=== PATIENT | male | born 1960 | race Caucasian/White ===

== ENCOUNTER 2020-04-17 15:16 | Emergency (ER) | payer OTHER, MEDICARE, SELFPAY ==
--- NOTE | ~2020-04-17 | XR_ITS ---
EXAMINATION: XR chest 1V portable EXAM DATE: 04/17/2020 16:04 INDICATION: Chest pain, COVID positive. TECHNIQUE: Portable AP frontal chest x-ray was obtained. Comparison is made to prior examination from 05/24/2012. FINDINGS: The lungs are clear. There are no pleural effusions. The cardiomediastinal silhouette is within normal limits. There is no pneumothorax suspected. The bones and soft tissues are unremarkab le. IMPRESSION: No acute cardiopulmonary findings. Reviewed, dictated and finalized at location B. TH ANALYST
[2020-04-17 15:20] VITALS: BP 152/108; PULSE 100; RESP 16; TEMP 36.7; O2SAT 97
--- NOTE | 2020-04-17 15:28 | ECG_ITS ---
Measurements Intervals [place] Rate: 90 P: 64 UT: 155 QRS: 68 QRSD: 102 T: 56 QT: 355 QTc: 435 Interpretive Statements SINUS RHYTHM DELAYED PRECORDIAL R/S TRANSITION BASELINE ARTIFACT- I, II, III, AVR, AVF BORDERLINE ECG Electronically Signed On 04-17-2020 15:55:48 WHEEL MILL OPERATOR by Dakotah Dover D.O.
[2020-04-17 16:16] LABS: Basophils Absolute Auto 0.04 K/mm3 (0.00-0.10); Basophils Percent Auto 0.5 % (0.0-1.0); Eosinophils Absolute Auto 0.08 K/mm3 (0.02-0.50); Hematocrit 42.1 % (40.0-54.0); Hemoglobin 14.3 g/dL (14.0-18.0); Immature Granulocyte Absolute 0.09 K/mm3 (0.00-0.00); Immature Granulocyte Percent A 1.1 % (0.0-0.0); Lymphocytes Percent Auto 26.6 % (18.0-42.0); Mean Corpuscular Hemoglobin 32.1 pg (27.0-31.0); Mean Corpuscular Volume 94.6 fL (78.0-102.0); Mean Platelet Volume 10.5 fl (8.7-11.0); Monocytes Percent Auto 8.9 % (2.0-11.0); Neutrophils Absolute Auto 4.9 K/mm3 (1.7-7.2); Neutrophils Percent Auto 61.9 % (50.0-70.0); Platelet Count Result 248 K/mm3 (150-420); Red Blood Count 4.45 M/mm3 (4.70-6.10); Red Cell Distribution Width 12.6 % (11.6-14.4); White Blood Count 7.9 K/mm3 (4.8-10.8)
[2020-04-17 16:33] LABS: Alanine Aminotransferase 69 U/L (16-63); Alkaline Phosphatase 84 U/L (46-116); Anion Gap 8 mmol/L (8-16); Aspartate Amino Transferase 25 U/L (15-37); Bilirubin,Total 0.3 mg/dL (0.00-1.00); Blood Urea Nitrogen 21 mg/dL (7-18); Calcium 8.4 mg/dL (8.5-10.1); Carbon Dioxide 28 mmol/L (21-32); Chloride 102 mmol/L (98-108); Estimated Glomerular Filt Rate > 60; Glucose 95 mg/dL (70-99); Osmolality Calculated 289 mOsm/kg (285-295); Potassium 3.5 mmol/L (3.5-5.1); Sodium 138 mmol/L (136-145); Total Protein 7.6 g/dL (6.4-8.2); Troponin I 7.2 ng/L (0.00-60.4)
--- NOTE | 2020-04-17 16:44 | ED.CHESTPAIN ---
HPI - Chest Pain General Chief Complaint: Chest Pain Stated Complaint: Chest pain Source: patient Mode of arrival: ambulatory History of Present Illness HPI narrative: this is a 60-year-old male presents with some episode of chest pain described as a pressure midsternal subsequently resolved is diagnosed with a COVID and is currently not short of breath no history of heart disease no high blood pressure, currently no shortness of breath no cough no nausea vomiting no diaphoresis. complaint: chest pain Onset (ago): hour(s) Timing of current episode: episodic and now resolved Onset: during rest Pain location: substernal Pain radiation: none Severity: mild Quality: tightness Exacerbating factors: nothing Context: recent illness Related Data Home Medications Medication Instructions Recorded Confirmed baclofen 10 mg PO PRN PRN 04/17/20 04/17/20 citalopram 10 mg PO DAILY 04/17/20 04/17/20 methylprednisolone 4 mg PO DIRECTED 04/17/20 04/17/20 nortriptyline 25 mg PO HS 04/17/20 04/17/20 pravastatin 10 mg PO DAILY 04/17/20 04/17/20 sennosides [Laxative-Senna] 25 mg PO DAILY PRN 04/17/20 04/17/20 Allergies Allergy/AdvReac Type Severity Reaction Status Date / Time iodine Allergy Mild Unverified 07/17/08 15:27 amoxicillin Allergy Unknown Verified 08/12/17 13:30 Review of Systems Review of Systems: All systems reviewed & are unremarkable except as noted in HPI and below PMFSH Past Medical History Medical History Depression Family History Family History Other Acute myocardial infarction Social History Social History Smoking status: Never smoker Alcohol intake: current Exam Const: General: cooperative, healthy appearing, comfortable, no acute distress, well developed, alert, awake and Physically active HENMT: Head: normal to inspection Mouth: Yes Normal oral and palatal mucosa present Eyes: General: appearance normal, both eyes and all related structures Eyelids: eyelids normal Conjunctivae: conjunctivae normal Sclera: sclerae normal Neck: Neck: normal visual inspection, full ROM, no lymphadenopathy and no meningeal signs Thyroid: thyroid normal Chest: Chest palpation & inspection: normal inspection of the chest and normal palpation of entire chest wall Resp: Effort & Inspection: normal respiratory effort and able to speak in complete sentences Cardio: Jugular venous distension: no JVD Palpation: normal PMI Rate: regular rate Rhythm: regular rhythm Heart sounds: S1 normal heart sound present and S2 normal heart sound present Back/Spine/Pelvis: Back: no CVA tenderness Skin: General skin exam: normal color and no rashes or lesions noted Neuro: General: oriented to place, oriented to time, patient oriented x3 and gait normal Extrem: Right lower extremity: normal to inspection Psych: Appearance: grossly normal and well kempt Mental Status: mental status grossly normal Speech and movement: Normal speech and movement present Affect: normal affect Course Course Emergency Course: reassessment of patient, patient doing well currently no chest pain or discomfort with no shortness of breath, reviewed EKG x-ray and lab findings and advised patient to follow-up his primary care doctor. MDM - Chest Pain Lab Data Result diagrams: 04/17/20 16:07 04/17/20 16:07 Labs: Lab Results 04/17/20 04/17/20 Range/Units 16:07 16:07 WBC 7.9 (4.8-10.8) K/mm3 RBC 4.45 L (4.70-6.10) M/mm3 Hgb 14.3 (14.0-18.0) g/dL Hct 42.1 (40.0-54.0) % MCV 94.6 (78.0-102.0) fL MCH 32.1 H (27.0-31.0) pg MCHC 34.0 (32.0-36.0) g/dL RDW 12.6 (11.6-14.4) % Plt Count 248 (150-420) K/mm3 MPV 10.5 (8.7-11.0) fl Immature Gran % (Auto) 1.1 H (0.0-0.0) % Neut % (Auto) 61.9 (50.0-70.0) %
[2020-04-17 16:50] VITALS: PULSE 94; O2SAT 99
== END 2020-04-17 16:50 | disposition home or self-care (01) ==
PROVIDERS: Emergency Provider Emergency Medicine; PCP Internal Medicine
DX: R07.89 Other chest pain (principal); U07.1 COVID-19
CPT/HCPCS: 36415; 71045; 80053; 84484; 85025; 93005; 99283; 99284

== ENCOUNTER 2021-04-06 17:04 | Outpatient (CLI) | payer OTHER, MEDICARE, SELFPAY ==
[2021-04-06 18:14] LABS: SARS-CoV-2 RNA PCR Positive (Negative)
== END 2021-04-06 17:05 | disposition home or self-care (01) ==
LOC: CHSLAB 17:07
PROVIDERS: PCP Internal Medicine; Visit Provider Internal Medicine
DX: U07.1 COVID-19 (principal)
CPT/HCPCS: C9803; U0003; U0005

== ENCOUNTER 2021-12-01 06:43 | Outpatient (CLI) | payer OTHER, SELFPAY ==
--- NOTE | ~2021-12-01 | MR_ITS ---
EXAMINATION: MR brain/brain stem wo con DATE: 12/01/2021 09:27 INDICATION: Headache. TECHNIQUE: Magnetic resonance imaging (MRI) of the brain and brainstem was performed without intraven ous contrast. COMPARISON: None. FINDINGS: There is no intracranial hemorrhage, acute infarction, or abnormal intracranial mass lesion . There are scattered areas of nonspecific increased T2-weighted signal intensity in the cerebral whi te matter. The ventricles are normal in size. There is a left mastoid effusion. There is mild mucosal thickening in the paranasal sinuses. The orbits are normal. IMPRESSION: 1. Mild nonspecific cerebral white matter disease, which likely represents chronic small vessel ische daisy disease. Reviewed, dictated and finalized at location A. IMPRESSION: 1. Mild nonspecific cerebral white matter disease, which likely represents business rules developer kesha small vessel ischemic disease.
[2021-12-01 06:56] LABS: Basophils Absolute Auto 0.06 K/mm3 (0.00-0.10); Basophils Percent Auto 0.9 % (0.0-1.0); Eosinophils Absolute Auto 0.18 K/mm3 (0.02-0.50); Eosinophils Percent Auto 2.8 % (1.0-6.0); Hemoglobin 14.6 g/dL (14.0-18.0); Immature Granulocyte Absolute 0.04 K/mm3 (0.00-0.00); Immature Granulocyte Percent A 0.6 % (0.0-0.0); Lymphocytes Absolute Auto 1.38 K/mm3 (1.10-4.50); Lymphocytes Percent Auto 21.3 % (18.0-42.0); Mean Corpuscular Hemoglobin 32.6 pg (27.0-31.0); Mean Platelet Volume 9.8 fl (8.7-11.0); Monocytes Absolute Auto 0.68 K/mm3 (0.10-0.90); Monocytes Percent Auto 10.5 % (2.0-11.0); Neutrophils Absolute Auto 4.1 K/mm3 (1.7-7.2); Neutrophils Percent Auto 63.9 % (50.0-70.0); Platelet Count Result 254 K/mm3 (150-420); Red Blood Count 4.48 M/mm3 (4.70-6.10); Red Cell Distribution Width 12.9 % (11.6-14.4); White Blood Count 6.5 K/mm3 (4.8-10.8)
[2021-12-01 06:57] LABS: Add Urine Microscopic? NO; Appearance Urine Clear (Clear); Bilirubin Urine Negative (Negative); Blood Urine Negative (Negative); Color Urine Light Yellow (Yellow); Glucose Urine UA Negative (Negative); Ketones Urine Negative (Negative); Leukocyte Esterase Ur Negative (Negative); Nitrate Urine Negative (Negative); Protein Urine Negative (Negative); Urobilinogen Urine 0.2 mg/dL (0.2-1.0)
[2021-12-01 07:20] LABS: Alanine Aminotransferase 34 U/L (16-63); Albumin Level 3.6 g/dL (3.4-5.0); Alkaline Phosphatase 95 U/L (46-116); Anion Gap 4 mmol/L (8-16); Aspartate Amino Transferase 16 U/L (15-37); Bilirubin,Total 0.8 mg/dL (0.00-1.00); Blood Urea Nitrogen 18 mg/dL (7-18); Calcium 8.3 mg/dL (8.5-10.1); Carbon Dioxide 29 mmol/L (21-32); Chloride 103 mmol/L (98-108); Cholesterol 234 mg/dL (0-200); Estimated Glomerular Filt Rate > 60; Glucose 100 mg/dL (70-99); HDL Direct 56 mg/dL (40-60); LDL Cholesterol Calculated 159 mg/dL (<130); Osmolality Calculated 283 mOsm/kg (285-295); Potassium 4.2 mmol/L (3.5-5.1); Sodium 136 mmol/L (136-145); Thyroid Stimulating Hormone 2.85 uIU/mL (0.36-3.74); Total Protein 6.8 g/dL (6.4-8.2); Triglycerides 93 mg/dL (0-150)
[2021-12-01 07:51] LABS: CRP < 0.2 mg/dL (0.0-0.9)
== END 2021-12-01 06:44 | disposition home or self-care (01) ==
LOC: CHSIMG 06:46
PROVIDERS: PCP Internal Medicine; Visit Provider Internal Medicine
DX: Z00.00 Encounter for general adult medical examination without abnormal findings (principal); R51.9 Headache, unspecified; E78.5 Hyperlipidemia, unspecified
CPT/HCPCS: 36415; 70551; 80053; 80061; 81003; 84443; 85025; 86140

== ENCOUNTER 2021-12-04 15:22 | Outpatient (CLI) | payer OTHER, SELFPAY ==
[2021-12-04 16:04] LABS: Calcium 9.2 mg/dL (8.5-10.1); Phosphorus 4.1 mg/dL (2.6-4.7)
[2021-12-08 11:38] LABS: Parathyroid Intact 29 pg/mL (14-64)
[2021-12-09 12:33] LABS: Vitamin D 25 Hydroxy 27 ng/mL (30-100)
== END 2021-12-04 15:23 | disposition home or self-care (01) ==
LOC: CHSLAB 15:24
PROVIDERS: PCP Internal Medicine; Visit Provider Internal Medicine
DX: E55.9 Vitamin D deficiency, unspecified (principal)
CPT/HCPCS: 36415; 82306; 82310; 82330; 83970; 84100

== ENCOUNTER 2022-04-26 11:08 | Outpatient (CLI) | payer OTHER, SELFPAY ==
--- NOTE | ~2022-04-26 | XR_ITS ---
Clinical Indication: Cough PA and lateral views of the chest: Comparison: 04/17/2020 Findings: The lungs are clear, without evidence of focal consolidation or pleural effusion. Cardiome diastinal silhouette is within normal limits. Bones and soft tissues are unremarkable. Impression: Normal chest. Reviewed, dictated and finalized at location . ARY CIRCULATION ASSISTANT Impression: Normal chest.
[2022-04-26 11:18] LABS: Basophils Absolute Auto 0.05 K/mm3 (0.00-0.10); Basophils Percent Auto 0.8 % (0.0-1.0); Eosinophils Absolute Auto 0.36 K/mm3 (0.02-0.50); Eosinophils Percent Auto 5.8 % (1.0-6.0); Hematocrit 45.3 % (40.0-54.0); Hemoglobin 15.1 g/dL (14.0-18.0); Immature Granulocyte Absolute 0.04 K/mm3 (0.00-0.00); Immature Granulocyte Percent A 0.6 % (0.0-0.0); Lymphocytes Absolute Auto 0.95 K/mm3 (1.10-4.50); Lymphocytes Percent Auto 15.2 % (18.0-42.0); Mean Corpuscular HGB Conc 33.3 g/dL (32.0-36.0); Mean Corpuscular Hemoglobin 32.5 pg (27.0-31.0); Mean Corpuscular Volume 97.4 fL (78.0-102.0); Monocytes Absolute Auto 0.87 K/mm3 (0.10-0.90); Monocytes Percent Auto 13.9 % (2.0-11.0); Neutrophils Percent Auto 63.7 % (50.0-70.0); Platelet Count Result 257 K/mm3 (150-420); Red Blood Count 4.65 M/mm3 (4.70-6.10); White Blood Count 6.2 K/mm3 (4.8-10.8)
[2022-04-26 12:29] LABS: Alanine Aminotransferase 64 U/L (16-63); Albumin Level 4.1 g/dL (3.4-5.0); Alkaline Phosphatase 109 U/L (46-116); Anion Gap 7 mmol/L (8-16); Aspartate Amino Transferase 28 U/L (15-37); Bilirubin,Total 0.6 mg/dL (0.00-1.00); Blood Urea Nitrogen 17 mg/dL (7-18); CRP 0.7 mg/dL (0.0-0.9); Carbon Dioxide 30 mmol/L (21-32); Chloride 103 mmol/L (98-108); Estimated Glomerular Filt Rate 53; Glucose 96 mg/dL (70-99); Osmolality Calculated 291 mOsm/kg (285-295); Potassium 4.6 mmol/L (3.5-5.1); Sodium 140 mmol/L (136-145); Total Protein 7.4 g/dL (6.4-8.2)
[2022-04-28 18:56] LABS: Hepatitis A Antibody IgM Nonreactive; Hepatitis B Core Antibody Nonreactive (Nonreactive); Hepatitis B Surface Antigen Nonreactive (Nonreactive); Hepatitis C Signal to Cutoff 0.02 ratio (<1.00); Hepatitis C Virus Antibody Nonreactive (Nonreactive)
== END 2022-04-26 11:09 | disposition home or self-care (01) ==
LOC: CHSLAB 11:10
PROVIDERS: PCP Internal Medicine; Visit Provider Internal Medicine
DX: R05.9 Cough, unspecified (principal); R06.00 Dyspnea, unspecified
CPT/HCPCS: 36415; 71046; 80053; 80074; 85025; 86140

== ENCOUNTER 2022-05-11 08:11 | Outpatient (CLI) | payer OTHER, SELFPAY | END 2022-05-11 08:12 | disposition home or self-care (01) | LOC: CHSCARD 08:13 | PROVIDERS: PCP Internal Medicine; Visit Provider Internal Medicine | DX: R05.9 Cough, unspecified (principal); R06.00 Dyspnea, unspecified | CPT/HCPCS: 94060; 94726; 94729 ==

== ENCOUNTER 2022-09-13 06:36 | Outpatient (CLI) | payer OTHER, SELFPAY ==
--- NOTE | ~2022-09-13 | MR_ITS ---
EXAMINATION: MRA brain wo con DATE: 09/13/2022 08:20 INDICATION: Headache. History of intracranial aneurysm. TECHNIQUE: Magnetic resonance angiography (MRA) of the brain was performed without intravenous contra st with T1-weighted SPGR by the 3D [id number] technique. Maximum intensity projection 3D-reconstr uctions were obtained. COMPARISON: Brain MRI 12/01/2021 FINDINGS: Left vertebral artery is dominant. There is no significant stenosis of basilar artery or the posterio r cerebral arteries. There is no significant stenosis of the intracranial internal carotid arteries o r anterior or middle cerebral arteries. The posterior communicating arteries are normal. There is no aneurysm. IMPRESSION: 1. No aneurysm or significant intracranial arterial stenosis. Reviewed, dictated and finalized at location A.
--- NOTE | ~2022-09-13 | MR_ITS ---
EXAMINATION: MRA neck wo/w con DATE: 09/13/2022 08:21 INDICATION: Headache. History of intracranial aneurysm. TECHNIQUE: Magnetic resonance angiography (MRA) of the neck was performed without and with 19 mL Mult iHance intravenous contrast. COMPARISON: Neck CT 08/24/2012 FINDINGS: The vertebral artery is dominant. There is no significant stenosis of the vertebral arteries. There i s plaque in the proximal internal carotids. There is 0% stenosis of the proximal right internal carot id artery relative to normal distal artery lumen diameter (NASCET criteria). There is 0% stenosis of the proximal left internal carotid artery relative to normal distal artery lumen diameter. IMPRESSION: 1. 0% stenosis of the proximal internal carotid arteries relative to normal distal artery lumen diame ters (NASCET criteria). Reviewed, dictated and finalized at location A. IMPRESSION: 1. 0% stenosis of the proximal internal carotid arteries relative to normal dis milad artery lumen diameters (NASCET criteria).
== END 2022-09-13 06:37 | disposition home or self-care (01) ==
PROVIDERS: PCP Internal Medicine; Visit Provider Internal Medicine
DX: R51.9 Headache, unspecified (principal); Z82.49 Family history of ischemic heart disease and other diseases of the circulatory system
CPT/HCPCS: 70544; 70549; A9577

== ENCOUNTER 2022-12-04 07:04 | Outpatient (CLI) | payer OTHER, SELFPAY ==
[2022-12-04 07:18] LABS: Basophils Absolute Auto 0.05 K/mm3 (0.00-0.10); Basophils Percent Auto 0.5 % (0.0-1.0); Hematocrit 41.5 % (40.0-54.0); Immature Granulocyte Absolute 0.07 K/mm3 (0.00-0.00); Immature Granulocyte Percent A 0.7 % (0.0-0.0); Lymphocytes Absolute Auto 1.88 K/mm3 (1.10-4.50); Lymphocytes Percent Auto 18.7 % (18.0-42.0); Mean Corpuscular HGB Conc 33.7 g/dL (32.0-36.0); Mean Corpuscular Hemoglobin 32.6 pg (27.0-31.0); Mean Corpuscular Volume 96.7 fL (78.0-102.0); Mean Platelet Volume 10.2 fl (8.7-11.0); Monocytes Percent Auto 8.9 % (2.0-11.0); Neutrophils Percent Auto 69.2 % (50.0-70.0); Platelet Count Result 253 K/mm3 (150-420); Red Blood Count 4.29 M/mm3 (4.70-6.10); Red Cell Distribution Width 12.8 % (11.6-14.4); White Blood Count 10.1 K/mm3 (4.8-10.8)
[2022-12-04 07:55] LABS: Alanine Aminotransferase 28 U/L (16-63); Albumin Level 3.9 g/dL (3.4-5.0); Alkaline Phosphatase 92 U/L (46-116); Anion Gap 10 mmol/L (8-16); Aspartate Amino Transferase 11 U/L (15-37); Bilirubin,Total 0.7 mg/dL (0.00-1.00); Blood Urea Nitrogen 26 mg/dL (7-18); Calcium 8.8 mg/dL (8.5-10.1); Carbon Dioxide 27 mmol/L (21-32); Chloride 104 mmol/L (98-108); Cholesterol 224 mg/dL (0-200); Estimated Glomerular Filt Rate > 60; Glucose 101 mg/dL (70-99); HDL Direct 49 mg/dL (40-60); LDL Cholesterol Calculated 160 mg/dL (<130); Osmolality Calculated 296 mOsm/kg (285-295); Potassium 4.4 mmol/L (3.5-5.1); Prostate Specific Antigen 2.2 ng/mL (< OR = 4.0); Sodium 141 mmol/L (136-145); Thyroid Stimulating Hormone 1.66 uIU/mL (0.36-3.74); Triglycerides 74 mg/dL (0-150)
== END 2022-12-04 07:05 | disposition home or self-care (01) ==
LOC: CHSLAB 07:06
PROVIDERS: PCP Internal Medicine; Visit Provider Internal Medicine
DX: I10 Essential (primary) hypertension (principal); E78.5 Hyperlipidemia, unspecified; Z12.5 Encounter for screening for malignant neoplasm of prostate
CPT/HCPCS: 36415; 80053; 80061; 84153; 84443; 85025; G0103

== ENCOUNTER 2023-02-07 14:44 | Outpatient (CLI) | payer OTHER, SELFPAY ==
--- NOTE | 2023-02-07 14:49 | ECHO_ITS ---
Patient Info Name: Iftikhar Arreaga Age: 63 years : 1960 Gender: Male Ht: 70 in Wt: 210 lbs BSA: 2.19 m2 HR: 86 bpm BP: 137 / 90 mmHg Heart Rhythm: Sinus Rhythm Technical Quality: Good Exam Date: 02/07/2023 3:44 PM Exam Location: Echo Lab Patient Status: Outpatient Admit Date: 02/07/2023 Staff Ordering Physician: Anthony Patrick MD Extrusion Manager: Beata Frazier RDCS Attending Provider: Anthony Patrick MD Exam Type: CA echo doppler color flow Study Info Indications - HTN Complete two-dimensional, color flow and Doppler transthoracic echocardiogram is performed. Summary 1. Complete two-dimensional, color flow and Doppler transthoracic echocardiogram is performed. 2. Left ventricular chamber dimension is normal. 3. Left ventricular systolic function is normal, estimated at 60-65%. 4. There is moderate concentric increased left ventricular wall thickness. 5. The left ventricular diastolic function is grade I diastolic dysfunction. 6. E/e' 8 is minimally elevated. 7. There is mild aortic valve sclerosis. 8. There is trace aortic valve regurgitation. 9. No pulmonary hypertension, estimated pulmonary arterial systolic pressure is 31 mmHg. 10. There is trace pulmonic regurgitation. Left Ventricle E/e' 8 is minimally elevated. Left ventricular chamber dimension is normal. Left ventricular systolic function is normal, estimated at 60-65%. There is moderate concentric increased left ventricular wall thickness. The left ventricular diastolic function is grade I diastolic dysfunction. Right Ventricle Right ventricular systolic function is normal and with normal TAPSE 3.3 cm. Right ventricular chamber dimension is normal. Left Atria Left atrial chamber dimension is normal. Right Atria Right atrial chamber dimension is normal. Aortic Valve The aortic valve is trileaflet. There is mild aortic valve sclerosis. There is no aortic valve stenosis. There is trace aortic valve regurgitation. Pulmonic Valve There is trace pulmonic regurgitation. Mitral Valve There is no mitral valve stenosis. There is no mitral valve regurgitation. Tricuspid Valve There is no tricuspid valve regurgitation. No pulmonary hypertension, estimated pulmonary arterial systolic pressure is 31 mmHg. Pericardium/Pleural There is no pericardial effusion. Inferior Vena Cava Normal inferior vena cava with >50% collapse upon inspiration consistent with normal right atrial pressure, 5 mmHg. Aorta The aortic root size at the sinus of Valsalva is normal. Left Ventricular Outflow Tract Name Value Normal LVOT 2D LVOT Diameter 2.3 cm LVOT Doppler LVOT Peak Velocity 121 cm/s LVOT Peak Gradient 5 mmHg LVOT Mean Gradient 3 mmHg LVOT VTI 26 cm LVOT VTI/AV VTI Ratio 0.6 LVOT Stroke Volume 102 ml Pulmonic Valve Name Value Normal RVOT Doppler
== END 2023-02-07 14:45 | disposition home or self-care (01) ==
LOC: CHSIMG 14:45
PROVIDERS: PCP Internal Medicine; Visit Provider Internal Medicine
DX: I10 Essential (primary) hypertension (principal); I35.8 Other nonrheumatic aortic valve disorders
CPT/HCPCS: 93306

== ENCOUNTER 2023-02-23 14:29 | Outpatient (CLI) | payer OTHER, SELFPAY ==
--- NOTE | 2023-02-23 14:37 | ECG_ITS ---
Measurements Intervals [place] Rate: 68 P: 60 VT: 167 QRS: 51 QRSD: 106 T: 59 QT: 426 QTc: 453 Interpretive Statements SINUS RHYTHM SUPRAVENTRICULAR TRIGEMINY ABNORMAL ECG COMPARED TO ECG 04/17/2020 15:41:19 SUPRAVENTRICULAR TRIGEMINY NOW PRESENT Electronically Signed On 02-23-2023 20:05:42 FAUCET POLISHER by Dakotah Dover D.O.
== END 2023-02-23 14:30 | disposition home or self-care (01) ==
LOC: ANHCARD 14:33
PROVIDERS: PCP Internal Medicine; Visit Provider Internal Medicine Cardiovascular Disease
DX: R07.9 Chest pain, unspecified (principal); R94.31 Abnormal electrocardiogram [ECG] [EKG]
CPT/HCPCS: 93005

== ENCOUNTER 2023-03-10 08:07 | Outpatient (CLI) | payer OTHER, SELFPAY ==
--- NOTE | 2023-03-10 08:25 | EST_ITS ---
Patient Info Name: Iftikhar Arreaga Age: 63 years : 1960 Gender: Male Ht: 69 in Wt: 200 lbs BSA: 2.12 m2 BP: 114 / 77 mmHg Technical Quality: Good Exam Date: 03/10/2023 9:05 AM Exam Location: Echo Lab Patient Status: Outpatient Admit Date: 03/10/2023 Staff Ordering Physician: Dakotah Dover DO Student Assistance Counselor: Apple Bruno RDCS Attending Provider: Dakotah Dover DO Referring Physician: Stanislaw RASHEED; Exam Type: CA stress echo Study Info Indications R07.9 - Chest pain, unspecified Treadmill exercise stress echocardiogram is performed. Summary 1. 1. Negative Thiago exercise stress test for ischemic ST changes by ECG criteria. 2. 2. Reduced functional capacity, achieving 8 METs of workload. 3. 3. Appropriate HR response to exercise. 4. 4. Appropriate HR recovery at 1 minute post exercise. 5. 5. Negative stress echocardiogram for ischemia by wall motion analysis. 6. 6. Patient informed of the above results. Stress Echo Findings Left Ventricle Appropriate increase in LV endocardial thickening with systole. Appropriate augmentation of contractility with systole. No wall motion abnormality. Left Ventricle Normal LV systolic function, no wall motion abnormamlity. Protocol: Thiago Stress ECG Details Stage: REST Duration (min): 1 min : 11 sec Speed (mph): 0.0 Grade (%): 0 HR (bpm): 74 SBP (mmHg): 114 DBP (mmHg): 77 METS: --- Stage: REST Duration (min): 36 min : 6 sec Speed (mph): 0.0 Grade (%): 0 HR (bpm): 87 SBP (mmHg): 114 DBP (mmHg): 77 METS: --- Stage: STAGE 1 Duration (min): 1 min : 0 sec Speed (mph): 1.7 Grade (%): 10 HR (bpm): 95 SBP (mmHg): 114 DBP (mmHg): 77 METS: --- Stage: STAGE 1 Duration (min): 2 min : 0 sec Speed (mph): 1.7 Grade (%): 10 HR (bpm): 108 SBP (mmHg): 114 DBP (mmHg): 77 METS: --- Stage: STAGE 1 Duration (min): 3 min : 0 sec Speed (mph): 1.7 Grade (%): 10 HR (bpm): 114 SBP (mmHg): 128 DBP (mmHg): 70 METS: --- Stage: STAGE 2 Duration (min): 1 min : 0 sec Speed (mph): 2.5 Grade (%): 12 HR (bpm): 122 SBP (mmHg): 128 DBP (mmHg): 70 METS: --- Stage: STAGE 2 Duration (min): 2 min : 0 sec Speed (mph): 2.5 Grade (%): 12 HR (bpm): 125 SBP (mmHg): 161 DBP (mmHg): 70 METS: --- Stage: STAGE 2 Duration (min): 3 min : 0 sec Speed (mph): 2.5 Grade (%): 12 HR (bpm): 132 SBP (mmHg): 161 DBP (mmHg): 70 METS: --- Stage: STAGE 3 Duration (min): 0 min : 49 sec Speed (mph): 0.0 Grade (%): 0 HR (bpm): 141 SBP (mmHg): 180 DBP (mmHg): 90 METS: --- Stage: RECOVERY Duration (min): 0 min : 10 sec Speed (mph): 0.0 Grade (%): 0 HR (bpm): 141 SBP (mmHg): 180 DBP (mmHg): 90 METS: --- Stage: RECOVERY Duration (min): 1 min : 10 sec Speed (mph): 0.0 Grade (%): 0 HR (bpm): 114 SBP (mmHg): 180 DBP (mmHg): 90 METS: --- Stage: RECOVERY Duration (min): 2 min : 10 sec Speed (mph): 0.0 Grade (%
== END 2023-03-10 08:08 | disposition home or self-care (01) ==
LOC: ANHCARD 08:11
PROVIDERS: PCP Internal Medicine; Visit Provider Internal Medicine Cardiovascular Disease
DX: R07.9 Chest pain, unspecified (principal)
CPT/HCPCS: 93351

== ENCOUNTER 2023-04-15 11:50 | Outpatient (CLI) | payer OTHER, SELFPAY ==
[2023-04-15 12:12] LABS: Basophils Absolute Auto 0.04 K/mm3 (0.00-0.10); Basophils Percent Auto 0.6 % (0.0-1.0); Eosinophils Absolute Auto 0.17 K/mm3 (0.02-0.50); Eosinophils Percent Auto 2.6 % (1.0-6.0); Hematocrit 39.5 % (40.0-54.0); Hemoglobin 13.3 g/dL (14.0-18.0); Immature Granulocyte Absolute 0.02 K/mm3 (0.00-0.00); Immature Granulocyte Percent A 0.3 % (0.0-0.0); Lymphocytes Absolute Auto 1.27 K/mm3 (1.10-4.50); Lymphocytes Percent Auto 19.4 % (18.0-42.0); Mean Corpuscular HGB Conc 33.7 g/dL (32.0-36.0); Mean Corpuscular Hemoglobin 32.8 pg (27.0-31.0); Mean Corpuscular Volume 97.3 fL (78.0-102.0); Mean Platelet Volume 10.9 fl (8.7-11.0); Monocytes Absolute Auto 0.64 K/mm3 (0.10-0.90); Monocytes Percent Auto 9.8 % (2.0-11.0); Neutrophils Absolute Auto 4.4 K/mm3 (1.7-7.2); Neutrophils Percent Auto 67.3 % (50.0-70.0); Platelet Count Result 262 K/mm3 (150-420); Red Blood Count 4.06 M/mm3 (4.70-6.10); Red Cell Distribution Width 12.1 % (11.6-14.4); White Blood Count 6.5 K/mm3 (4.8-10.8)
[2023-04-15 13:18] LABS: Alanine Aminotransferase 37 U/L (16-63); Albumin Level 3.3 g/dL (3.4-5.0); Alkaline Phosphatase 92 U/L (46-116); Anion Gap 8 mmol/L (8-16); Aspartate Amino Transferase 22 U/L (15-37); Bilirubin,Total 0.4 mg/dL (0.00-1.00); Blood Urea Nitrogen 14 mg/dL (7-18); CRP 2.6 mg/dL (0.0-0.9); Calcium 7.8 mg/dL (8.5-10.1); Carbon Dioxide 28 mmol/L (21-32); Chloride 104 mmol/L (98-108); Estimated Glomerular Filt Rate 58; Glucose 99 mg/dL (70-99); Osmolality Calculated 290 mOsm/kg (285-295); Potassium 4.4 mmol/L (3.5-5.1); Sodium 140 mmol/L (136-145); Total Protein 6.7 g/dL (6.4-8.2)
== END 2023-04-15 11:51 | disposition home or self-care (01) ==
LOC: CHSLAB 11:52
PROVIDERS: PCP Internal Medicine; Visit Provider Internal Medicine
DX: R10.30 Lower abdominal pain, unspecified (principal)
CPT/HCPCS: 36415; 80053; 85025; 86140

== ENCOUNTER 2023-04-18 11:55 | Outpatient (CLI) | payer OTHER, SELFPAY ==
[2023-04-18 12:10] LABS: Basophils Absolute Auto 0.04 K/mm3 (0.00-0.10); Basophils Percent Auto 0.7 % (0.0-1.0); Eosinophils Absolute Auto 0.12 K/mm3 (0.02-0.50); Hematocrit 44.1 % (40.0-54.0); Hemoglobin 14.6 g/dL (14.0-18.0); Immature Granulocyte Absolute 0.03 K/mm3 (0.00-0.00); Immature Granulocyte Percent A 0.5 % (0.0-0.0); Lymphocytes Absolute Auto 1.25 K/mm3 (1.10-4.50); Lymphocytes Percent Auto 20.9 % (18.0-42.0); Mean Corpuscular HGB Conc 33.1 g/dL (32.0-36.0); Mean Corpuscular Hemoglobin 31.7 pg (27.0-31.0); Mean Corpuscular Volume 95.9 fL (78.0-102.0); Mean Platelet Volume 10.3 fl (8.7-11.0); Monocytes Absolute Auto 0.67 K/mm3 (0.10-0.90); Monocytes Percent Auto 11.2 % (2.0-11.0); Neutrophils Absolute Auto 3.9 K/mm3 (1.7-7.2); Neutrophils Percent Auto 64.7 % (50.0-70.0); Platelet Count Result 302 K/mm3 (150-420); Red Cell Distribution Width 11.9 % (11.6-14.4)
== END 2023-04-18 11:56 | disposition home or self-care (01) ==
LOC: CHSLAB 11:57
PROVIDERS: PCP Internal Medicine; Visit Provider Internal Medicine
DX: D64.9 Anemia, unspecified (principal)
CPT/HCPCS: 36415; 85025

== ENCOUNTER 2023-05-16 08:40 | Outpatient (CLI) | payer OTHER, SELFPAY ==
--- NOTE | ~2023-05-16 | CT_ITS ---
CT of the Abdomen and Pelvis: Indication: Abdominal pain Technique: 2.5 mm axial scans were obtained through the abdomen and pelvis following intravenous adm inistration of 100 cc of Omnipaque 350. Dose reduction technique was used on this scan by utilizing a utomated exposure control and iterative reconstruction technique. The dose-length product (DLP) was 4 60.05 mGy-cm. Findings: Scans through the lung bases are unremarkable. The liver, spleen, pancreas, gallbladder, adrenals and kidneys are within normal limits. There are at herosclerotic calcifications of the aorta. No lymphadenopathy. No bowel obstruction or bowel wall thickening. There is no evidence to suggest acute appendicitis. Images through the pelvis were performed. Urinary bladder unremarkable. No pelvic mass seen. No ascit es. Impression: No significant abnormalities seen. Reviewed, dictated and finalized at [facility]. ER ROLLER Impression: No significant abnormalities seen.
[2023-05-16 09:03] LABS: Estimated Glomerular Filt Rate > 60
== END 2023-05-16 08:41 | disposition home or self-care (01) ==
LOC: CHSIMG 08:42
PROVIDERS: PCP Internal Medicine; Visit Provider Internal Medicine
DX: R10.9 Unspecified abdominal pain (principal)
CPT/HCPCS: 74177; Q9967

== ENCOUNTER 2023-06-16 06:17 | Day surgery (SDC) | payer OTHER, SELFPAY ==
[2023-05-10 13:59] VITALS: BMI 28.6
--- NOTE | 2023-05-10 14:23 | PC.NURSE ---
PT CURRENTLY HAS FLU A. PER [facility]
--- NOTE | 2023-06-01 13:57 | SUR.PREOP ---
pt states no change in recent health hx. new time and date provided for procedure
--- NOTE | 2023-06-16 07:14 | PM.HPGS ---
History of Present Illness History of Present Illness Consent: Risks, benefits, and alternatives have been discussed and questions answered. Patient agrees to proceed with procedure. Chief complaint: Diverticulosis Narrative: Iftikhar Arreaga is a 63 year old male referred for colonoscopy. Patient reports he has abdominal pain and bloating. Stools have become somewhat loose. On a few occasions he has noticed bright red blood per rectum. He does have a prior history significant anemia fiber 6 years ago. At that time colonoscopy was performed in [place]. The exact etiology abdominal bloating and irregular stools along with occasional bright red blood per rectum follow-up colonoscopy has been advised. Review of Systems Review of Systems: Review of systems noncontributory. [facility] Past Medical History Medical History Depression Family History Family History Other Acute myocardial infarction Social History Social History (Updated 06/03/23 @ 09:12 by Harini Doll CMA) Smoking status: Never smoker Alcohol intake: current Drinks per week: 6 Alcohol use details: PT STATES HE USED TO DRINK EVERY DAY UNTIL A YEAR AGO Substance use: never Substance use type: does not use Do You Feel Safe in your Home?: Yes Lack of Transportation: No Lack of Food: Never True Current Housing: I Have Housing Concerned About Future Housing: No Difficulty Paying Gas/Electric Bills: No Difficulty Paying for Meds: No Currently Unemployed: No Education: Decline to Answer Difficulty w/ Childcare or Family Care: No Living arrangements: alone Spiritual care concerns: No Meds Home Medications and Allergies Home Medications Medication Instructions Recorded Confirmed Type baclofen 10 mg tablet 10 mg PO PRN PRN Pain 04/17/20 06/16/23 History citalopram 10 mg tablet 10 mg PO DAILY 04/17/20 06/16/23 History atorvastatin 20 mg tablet 20 mg PO DAILY #30 tabs 02/14/23 06/16/23 Rx losartan 50 mg tablet 50 mg PO DAILY 02/14/23 06/16/23 History nortriptyline 25 mg capsule 10 mg PO HS 02/14/23 06/16/23 History (Pamelor) verapamil 120 mg 24 hr 120 mg PO DAILY 02/14/23 06/16/23 History capsule,extended release sodium,potassium,mag sulfates 17.5 See Rx Instructions PO .COMPLEX 05/10/23 06/16/23 Rx gram-3.13 gram-1.6 gram oral soln #354 mL (Suprep Bowel Prep Kit) Allergies Allergy/AdvReac Type Severity Reaction Status Date / Time shellfish derived Allergy Intermediate Rash Verified 06/16/23 06:58 amoxicillin AdvReac Mild Nausea Verified 06/16/23 06:58 Exam Narrative: Physical exam reveals patient to be alert. Vital signs stable. HEENT is unremarkable. Patient is anicteric. His are clear to auscultation and percussion. Heart is without murmur or it sounds. Abdomen bowel sounds are present soft nontender with no organomegaly. Digital external rectal exam is normal. Assessment and Plan Assessment and plan (1) BRBPR (bright red blood per rectum): Code(s): K62.5 - Hemorrhage of anus and rectum Status: Acute Assessment and Plan: With occasional bright red blood per rectum along with irregular stools loose stool , some bloating, all suspicious for irritable bowel syndrome. Rectal bleeding could be from hemorrhoids. Other lesions cannot be excluded. He has significant anemia several years ago that was never definitively explain to the patient. Plan for surveillance colonoscopy at this time. Fiber supplementation may be of some benefit. (2) Bloating: Code(s): R14.0 - Abdominal distension (gaseous) Status: Acute
[2023-06-16] MEDS: LACTATED RINGERS 1,000 ML 150 ML IV CONT (07:39)
[2023-06-16 07:45] VITALS: BP 121/81
--- NOTE | 2023-06-16 08:45 | P.PNAN_ITS ---
Anes - Initial Pre Proc Eval Procedure: Operation Date: 06/16/23 08:30 Proposed Procedures p Diagnostic Colonoscopy - Gigi Evangelitsa MD Date/Time: 06/16/23 08:45 Surgeon: Gigi Evangelista MD Pre Op Diagnosis: Diverticulosis Patient Data Age: 63 Gender: M Height: 1.75 m Weight: 85.7 kg Last Vital Signs BP 121/81 06/16/23 07:45 Allergies Allergy/AdvReac Type Severity Reaction Status Date / Time shellfish derived Allergy Intermediate Rash Verified 06/16/23 06:58 amoxicillin AdvReac Mild Nausea Verified 06/16/23 06:58 Home Medications Medication Instructions Recorded Confirmed Type baclofen 10 mg tablet 10 mg PO PRN PRN Pain 04/17/20 06/16/23 History citalopram 10 mg tablet 10 mg PO DAILY 04/17/20 06/16/23 History atorvastatin 20 mg tablet 20 mg PO DAILY #30 tabs 02/14/23 06/16/23 Rx losartan 50 mg tablet 50 mg PO DAILY 02/14/23 06/16/23 History nortriptyline 25 mg capsule 10 mg PO HS 02/14/23 06/16/23 History (Pamelor) verapamil 120 mg 24 hr 120 mg PO DAILY 02/14/23 06/16/23 History capsule,extended release sodium,potassium,mag sulfates 17.5 See Rx Instructions PO .COMPLEX 05/10/23 06/16/23 Rx gram-3.13 gram-1.6 gram oral soln #354 mL (Suprep Bowel Prep Kit) Patient hx anesthesia problems: none Family hx anesthesia problems: none Results Review: All pre-operative results and documents have been reviewed as part of the pre- operative evaluation. [facility] Past Medical History Medical History Depression Family History Family History Other Acute myocardial infarction Social History Social History Smoking status: Never smoker Alcohol intake: current Drinks per week: 6 Alcohol use details: PT STATES HE USED TO DRINK EVERY DAY UNTIL A YEAR AGO Substance use: never Substance use type: does not use Do You Feel Safe in your Home?: Yes Lack of Transportation: No Lack of Food: Never True Current Housing: I Have Housing Concerned About Future Housing: No Difficulty Paying Gas/Electric Bills: No Difficulty Paying for Meds: No Currently Unemployed: No Education: Decline to Answer Difficulty w/ Childcare or Family Care: No Living arrangements: alone Spiritual care concerns: No Anes - Eval Final PreProcedure Day of Procedure 06/16/23 08:45 Patient weight: overweight Heart: regular rate and rhythm Lungs: clear to auscultation Airway: Mallampati scale class II Neurological: alert and oriented Last oral intake: >/= 8 hours ASA classification: III Emergent: no Anesthetic plan: proceed Anesthesia type and monitoring: general GIVS and standard monitoring Results Review: All pre-operative results and documents have been reviewed as part of the pre- operative evaluation. Informed Consent: The patient's anesthetic plan and its attendant risks and benefits were discussed with the patient/family/POA. Questions were solicited and answers provided to the satisfaction of the patient/family/POA.
[2023-06-16 09:13] VITALS: BP 107/74; PULSE 72; RESP 22; O2SAT 96
[2023-06-16 09:23] VITALS: BP 118/80; PULSE 74; RESP 20; O2SAT 99
[2023-06-16 09:33] VITALS: BP 115/86; PULSE 71; RESP 20; O2SAT 99
--- NOTE | 2023-06-16 09:49 | WPDANESPN ---
Anes - Prog Note Post-Op Date/Time: 06/16/23 09:49 Cardiovascular status: normal Respiratory status: normal Airway patency: baseline Mental status: baseline Post-Op hydration status: normal Vital Signs: Last Vital Signs Pulse 71 06/16/23 09:33 Resp 20 06/16/23 09:33 BP 115/86 06/16/23 09:33 Pulse Ox 99 06/16/23 09:33 O2 Del Method Room Air 06/16/23 09:33 Pain Score (VAS): 0 I/O: Intake & Output 06/15/23 06/16/23 06/16/23 23:59 07:59 15:59 Intake Total 600 Balance 600 Patient Feedback: Patient satisfied with anesthetic care.
== END 2023-06-16 09:42 | disposition home or self-care (01) ==
PROVIDERS: PCP Internal Medicine; Visit Provider Internal Medicine Gastroenterology
PROC: 0DJD8ZZ Inspection of Lower Intestinal Tract, Via Natural or Artificial Opening Endoscopic (ICD-10-PCS; CPT 45378; principal; 2023-06-16 08:30)
DX: K92.1 Melena (principal); K57.30 Diverticulosis of large intestine without perforation or abscess without bleeding; K64.8 Other hemorrhoids
CPT/HCPCS: 45378

== ENCOUNTER 2023-06-30 08:25 | Outpatient (CLI) | payer OTHER, SELFPAY ==
[2023-06-30 09:22] LABS: Cholesterol 164 mg/dL (0-200); HDL Direct 58 mg/dL; Triglycerides 113 mg/dL (<150)
[2023-06-30 09:33] LABS: LDL Cholesterol Direct 86 mg/dL
== END 2023-06-30 08:26 | disposition home or self-care (01) ==
PROVIDERS: PCP Internal Medicine; Visit Provider Internal Medicine Cardiovascular Disease
DX: E78.5 Hyperlipidemia, unspecified (principal)
CPT/HCPCS: 36415; 80061

== ENCOUNTER 2023-12-20 16:05 | Outpatient (CLI) | payer OTHER, SELFPAY ==
--- NOTE | ~2023-12-20 | XR_ITS ---
[id number] Ordering provider: Fozia Kapoor, INSPECTION CLERK History: . Cervicalgia/NO RECENT INJURIES . Comparison: None. FINDINGS: VERTEBRAL BODIES: Normal height and alignment. No visible fracture or subluxation. The dens is intact . Degenerative changes of the spine. DISK SPACES: Narrowing of the disc C4-C5. Multilevel facet joint disease. Multilevel uncovertebral joint osteoarthritic changes. PARASPINOUS SOFT TISSUES: No prevertebral soft tissue swelling. IMPRESSION: No acute osseous abnormality cervical spine. Reviewed, dictated and finalized at location A.
== END 2023-12-20 16:06 | disposition home or self-care (01) ==
LOC: CHSIMG 16:07
PROVIDERS: PCP Internal Medicine; Visit Provider Nurse Practitioner Family
DX: M54.2 Cervicalgia (principal)
CPT/HCPCS: 72040

== ENCOUNTER 2024-01-12 06:48 | Outpatient (CLI) | payer OTHER, SELFPAY ==
--- NOTE | ~2024-01-12 | MR_ITS ---
MRI of the cervical spine Clinical History: Cervicalgia Technique: Axial T2-weighted and gradient images, and sagittal T1-weighted, T2-weighted, and STIR magdy ges were acquired. Findings: There is no fracture or subluxation of the cervical spine. Vertebral bodies maintain normal height and alignment. No bone marrow signal abnormality seen. There is moderate degenerative disc na rrowing at C4-C5. At C2-C3, there is no disc bulge or herniation. No spinal canal stenosis, cord compression, or defini te neural foraminal narrowing. At C3-C4, there is probable left foraminal disc osteophyte complex with left facet arthropathy. There is left neural foraminal narrowing. Right neural foramen preserved. No canal stenosis or cord compre ssion. At C4-C5, there is minimal disc osteophyte complex. No bakari canal stenosis or cord compression. Ther e is probable mild bilateral neural foraminal narrowing, left worse than right. At C5-C6, there is no significant disc bulge or herniation. No spinal canal stenosis, cord compressio n, or neural foraminal narrowing. At C6-C7, there is minimal disc bulge. No spinal canal stenosis, cord compression, or neural foramina l narrowing. No abnormal signal seen in the spinal cord. Paravertebral soft tissues are unremarkable. Impression: Mild degenerative spondylosis overall, as above. Reviewed, dictated and finalized at [facility]. Impression: Mild degenerative spondylosis overall, as above.
== END 2024-01-12 06:49 | disposition home or self-care (01) ==
LOC: CHSIMG 06:49
PROVIDERS: PCP Internal Medicine; Visit Provider Nurse Practitioner Family
DX: M54.2 Cervicalgia (principal); M43.02 Spondylolysis, cervical region
CPT/HCPCS: 72141

== ENCOUNTER 2024-03-20 15:36 | Outpatient (CLI) | payer OTHER, SELFPAY ==
--- NOTE | ~2024-03-20 | XR_ITS ---
XR elbow LT min 3V Ordering provider: Anthony Patrick MD History: . left hand and elbow pain . Comparison: None. FINDINGS: BONES: No acute fracture or dislocation. Protruding bone is seen in the distal femur which may indicate osteochondroma. Follow-up advised. JOINT SPACES: Normal. SOFT TISSUES: Normal. No definite joint effusion. IMPRESSION: No acute osseous abnormality left elbow. Highly suggestive osteochondroma in the distal humerus. Follow-up advised. Reviewed, dictated and finalized at location A. ER REPAIR SUPERVISOR
--- NOTE | ~2024-03-20 | XR_ITS ---
XR hand LT min 3V Ordering provider: Anthony Patrick MD History: . left hand and elbow pain . Comparison: None. FINDINGS: BONES: No acute fracture or dislocation. Erosive changes seen in the tuft of the distal phalanx of the fourth finger. JOINT SPACES: Well maintained. Cystic changes seen in the scaphoid bone which is most likely degenera tive. SOFT TISSUES: Unremarkable. IMPRESSION: No acute osseous abnormality left hand. Erosive changes in the distal phalanx tuft of the fourth finger which may be due to previous infectio n. Clinical correlation advised. Degenerative changes in the area of the scaphoid bone. Reviewed, dictated and finalized at location A. IN FIXER IMPRESSION: No acute osseous abnormality left hand. Erosive changes in the distal phalanx tuft of the fourth finger which may be du e to previous infection. Clinical correlation advised. Degenerative changes in the area of the scaphoid bone.
== END 2024-03-20 15:37 | disposition home or self-care (01) ==
LOC: CHSIMG 15:41
PROVIDERS: PCP Internal Medicine; Visit Provider Internal Medicine
DX: M19.042 Primary osteoarthritis, left hand (principal); M25.522 Pain in left elbow
CPT/HCPCS: 73080; 73130

== ENCOUNTER 2024-03-29 09:21 | Outpatient (CLI) | payer OTHER, SELFPAY ==
--- NOTE | ~2024-03-29 | MR_ITS ---
EXAMINATION: MR humerus LT wo/w con DATE: 03/29/2024 10:22 INDICATION: Distal humeral osteochondroma TECHNIQUE: Magnetic resonance imaging (MRI) of the left humerus was performed without and with 19 mL Multihance intravenous contrast. Sequences included axial, sagittal and coronal T1-weighted FSE and f luid sensitive FSE STIR, axial T1-weighted FS FSE and post contrast axial, sagittal and coronal T1-we ighted FS FSE were also obtained. COMPARISON: Left elbow radiographs dated 03/19/2024 FINDINGS: There is normal bone marrow signal throughout. 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 The normal-appearing median nerve a nd brachial artery can be seen passing from posterior to anterior through the canal formed by the sup racondylar process and ligament and the underlying humerus. Soft tissues are unremarkable. No abnorma l masses or abnormally enhancing lesions identified. Physiologic amount fluid at the elbow joint with no abnormal fluid collections. IMPRESSION: 1. . Osseous excrescence of concern identified on prior radiograph corresponds to a normal anatomic v ariant supracondylar process. Reviewed, dictated and finalized at location B. SPEC IMPRESSION: 1. . Osseous excrescence of concern identified on prior radiograph corresponds to a normal anatomic variant supracondylar process.
== END 2024-03-29 09:22 | disposition home or self-care (01) ==
LOC: CHSIMG 09:23
PROVIDERS: PCP Internal Medicine; Visit Provider Internal Medicine
DX: M89.222 Other disorders of bone development and growth, left humerus (principal)
CPT/HCPCS: 73220; A9577

== ENCOUNTER 2024-06-04 10:36 | Outpatient (CLI) | payer OTHER, SELFPAY | END 2024-06-04 10:37 | disposition home or self-care (01) | LOC: CHSCARD 10:38 | PROVIDERS: PCP Internal Medicine; Visit Provider Internal Medicine | DX: R07.9 Chest pain, unspecified (principal); R94.2 Abnormal results of pulmonary function studies | CPT/HCPCS: 71046; 94060; 94726; 94729 ==

== ENCOUNTER 2024-06-08 14:15 | Outpatient (CLI) | payer OTHER, SELFPAY ==
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
--- OUTSIDE RECORDS SUMMARY | 2024-06-08 14:31 | XMS_ITS | Clinical Summary ---
Author Organization [facility] Address [address] [place] [address] Care Team Providers Care Primary Education Professor Name Role Phone Unavailable Primary Care Provider Unavailabl e Source Comments [facility],non-owned Affiliates and Associated Physician Practices is amultiple site organization consisting of ambulatory clinics and hospital sitesin [place], [place], [place] and [place]. This disclosure is being madepursuant to the Care Everywhere program and may not contain all information available regarding this patient. Last updated 17.[facility] Social History Tobacco Use Types Packs/Day Years [...] Mass Index 27.98 10/11/2016 4:00 PM CDT Plan of Treatment Health Maintenance Due Date Last Done Comments COLOGUARD (AGES 45-75) - COL ON CA SCREENING 1959 COLON MONITORING 1959 COLONOSCOPY - COLON CA SCREENING 1959 CT COLONOGRAPHY - COLON CA SCREENING 1959 Colorectal Cancer Screening 1959 FIT - COLON CA SCREENING 1959 FLEX SIG - COLON CA SCREENING 1959 LIPID TESTING 1959 HIV SCREENING 1974 HEPATITIS C SCREENING 01/09/1977 DTAP/TDAP/TD VACCINES (1 - Tdap) 1978 PNEUMOCOCCAL VACCINE 50+ (1 of 1 - PCV) 2009 ZOSTER VACCINE (1 of 2) 2009 COVID-19 VACCINE ( - 2023-2 5 season) 2023 INFLUENZA VACCINE (#1) 2023 DEPRESSION SCREENING 04/04/2024 Respiratory Syncytial Virus (RSV) Vaccine Pt: or over 60 yrs (1 - 1-dose 75+ series) 2034 HEPATITIS B VACCINE Aged Out No longe r eligible based on patient's age to complete this topic HIB VACCINE Aged Out No longer eligi ble based on patient's age to complete this topic HPV VACCINE Aged Out No longer eligi ble based on patient's age to complete this topic MENINGOCOCCAL (Group B) VACCINE Aged Out No longer eligible based on patient's age to complete this topic MENINGOCOCCAL VACCINE Aged Out No joseph vega eligible based on patient's age to complete this topic
--- OUTSIDE RECORDS SUMMARY | 2024-06-08 14:31 | XMS_ITS | Clinical Summary ---
Author Organization [facility] [address] [facility] Address [address] [place] [address] Care Team Providers Care Skate Boarder Name Role Phone Anthony Patrick MD Primary Care Provider [phone] Allergies Active Allergy Reactions Criticality Noted Date Comments Shellfish Containing Products Redness Low 2020 Medications baclofen (LIORESAL) 10 mg tablet 1 Active fluticasone propionate (FLONASE) 50 mcg/actuation nasal sprayIndication s:Acute pharyngitis, unspecified etiology Administer 2 sprays into each nostril daily 16 g 1 Active baclofen (LIORESAL) 10 mg tablet Active verapamil SR (CALAN SR) 120 mg CR tablet 3 Active nortriptyline (PAMELOR) 10 mg capsule Take 1 capsule (10 mg total) by mouth nightly 30 capsule 1 3 Active albuterol HFA (PROVENTIL HFA,VENTOLIN HFA,PROAIR HFA) 90 mcg/actuation inhalerIndicati ons:Subacute cough Inhale 2 puffs every 6 (six) hours as needed for wheezing 3 each 3 Active losartan (COZAAR) 50 mg tablet Take 1 tablet (50 mg total) by mouth daily 4 Active atorvastatin (LIPITOR) 20 mg tablet Take 1 tablet (20 mg total) by mouth daily [address] (VOLTAREN) 50 mg EC tablet Take 1 tablet (50 mg total) by mouth 2 (two) times a day 4 Active hydrocortisone (ANUSOL-HC) 2.5 % rectal cream INSERT 1 APPLICATORFUL RECTALLY DAILY NEEDED FOR HEMORRHOIDS 4 Active azithromycin (ZITHROMAX) 250 mg tablet Take two tabs first day, then one tab daily x 4 days 6 tablet 4 Active Active Problems Problem Noted Date Diagnosed Date Chronic post-traumatic headache, not intractable 11/04/2022 Encounters Date Type Department Care Team Description 03/18/2024 9:00 AM WAREHOUSE HANDLER Office Visit [facility] [place] [address] [place] [address] Mery Fisher NP Acute bacterial sinusitis (Primary Dx) from Last 3 Months Surgical History Surgery Date Site/Laterality Comments OTHER SURGICAL HISTORY No pertinent surgical hx KNEE SURGERY HENRY FUNDOPLICATION CARPAL TUNNEL RELEASE LATERAL EPICONDYLE RELEASE Medical History Medical History Date Comments Back pain PTSD (post-traumatic stress disorder) Asthma Hypertension Hyperlipidemia Chronic pain disorder Migraine Anxiety Depression Diverticulosis Family History Medical History Relation Name Comments Cancer Brother Cerebral aneurysm Father Heart disease Maternal Grandmother No Known Problems Mother Cancer Paternal Grandmother Relation Name Status Comments Brother Father Maternal Grandmother Mother Paternal Grandmother Social History Tobacco Use Types Packs/Day Years Used Date Smoking Tobacco: Never Smokeless Tobacco: Never Tobacco Cessation:Counseling Given: Not Answered Sex and Gender Information Value Date Recorded Sex Assigned at Not on file Legal Sex Male 11:50 PM WAREHOUSE HANDLER Gender Identity Not on file Sexual Orientation Not on file 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 Not on file Not on file Obstetrics History Last Filed Vital Signs Vital Sign Reading Time Taken Comments Blood Pressure 138/78 03/18/2024 8:53 AM WAREHOUSE HANDLER Pulse 85 03/18/2024 8:53 AM WAREHOUSE HANDLER Temperature 36.3 C (97.4 F) 03/18/2024 8:53 AM WAREHOUSE HANDLER Respiratory Rate 18 03/18/2024 8:53 AM WAREHOUSE HANDLER Oxygen Saturation 98% 03/18/2024 8:53 AM WAREHOUSE HANDLER Inhaled Oxygen Concentration - - Weight 92.1 kg (203 lb) 03/18/2024 8:53 AM WAREHOUSE HANDLER Height 177.8 cm (5' 10 ) 03/18/2024 8:53 AM WAREHOUSE HANDLER Body Mass Index 29.13 03/18/2024 8:53 AM WAREHOUSE HANDLER Plan of Treatment Health Maintenance Due Date Last Done Comments Colon Cancer Screening-Colonoscopy 1959 Depression Screening 1959 Fall Risk Assessment 1959 Hepatitis C Screening 1959 Prostate Cancer Screening-PSA 1959 Hepatitis B Screening 1977 Pneumococcal vaccine 65+ (1 of 1 - PCV) 2009 Zoster Vaccine (1 of 2) 2009 Influenza Vaccine (#1) 2023 Well Visit 65+ 01/15/2024 DTaP/Tdap/Td Vaccine (3 - Td or Tdap) 10/11/2026 10/11/2016, 09/24/2009, 09/24/2009 Procedures Procedure Name Priority Date/Time Associated Diagnosis Comments COVID-19 POC Routine 03/18/2024 9:16 AM WAREHOUSE HANDLER Acute bacterial sinusitis from Last 3 Months Results * COVID-19 POC (03/18/2024 9:16 AM WAREHOUSE HANDLER) COVID-19 RNA PCR POC Negative Not Detected, Negative, Undetected [facility] Nasal 03/18/2024 9:16 AM WAREHOUSE HANDLER us Mery Fisher NP POINT OF CARE TEST ORDERABLES Final Result [facility] [address] [place] [address], [facility] from Last 3 Months Insurance [facility] PLUS [facility] PLUS [facility] PLUS Care Teams Skate Boarder Relationship Specialty Start Date End Date Anthony Patrick MD PCP - General Internal Medicine 04/27/20
--- OUTSIDE RECORDS SUMMARY | 2024-06-08 14:31 | XMS_ITS | Data Portability ---
Author Organization [facility], Main Office Address [address] [place] [address] Care Team Providers Care Pattern Room Attendant Name Role Phone AMADA MAN Primary Care Provider [phone] Assessment No assessment recorded. Plan of Treatment Reminders Order Date Submit Date Provider Last Modified By Organization Details Last Modified Time Details Appointments None record ed. Lab None record ed. Referral None record ed. Procedures None record ed. Surgeries None record ed. Imaging None record ed. Medication Orders None record ed. Patient TargetsNo targets recorded. Patient Instructions Encounter Date Encounter Id Patient Instructions Last Modified By Organization Details Last Modified Time 09/05/2017 [id number] Patient counsele d to F/U immediately if temp. greater than 100.4, if is unable to urinate, increased rectal pain or any other concerns. Not available 09/05/2017 13:30:43 Follow up in 1 - 2 weeks and I will treat his right posterior internal hemorrhoid and probably take another look at his right anterior to decide when to do his 3rd treatment. I discussed with him he will be 3 - 5 treatments total. On today's visit I spent a total of {{30 35 40 45 50* 55 60}} minutes [id number] with the patient and over 50% of this time was spent discussing treatment options, risks/benefits of each option and alternatives. Not available 09/05/2017 13:31:01 09/14/2017 [id number] Patient counsele d to F/U immediately if temp. greater than 100.4, if is unable to urinate, increased rectal pain or any other concerns. Not available 09/14/2017 15:58:15 He will follow u p in 2 - 3 weeks and I will treat his RA internal hemorrhoids. He will be a total of 5 treatments. Not available 09/14/2017 16:15:36 10/17/2017 [id number] Patient counsele d to F/U immediately if temp. greater than 100.4, if is unable to urinate, increased rectal pain or any other concerns. Not available 10/17/2017 09:36:36 He will follow u p anywhere after 2 weeks (he is not sure when he will be able to come in because his school starts back up on November 09) and I will retreat his RP. We will then do a 5th tx and retreat his LL and RA. Not available 10/17/2017 09:19:30 Reason for Referral None Reported. Problems Name Problem SNOMED Code Status Onset Date Resolution Date Notes Provider Name and Address Organization Details Recorded Time Pile easily reducible 445349621 Active 2017 Tx #1: 09/05/17 1.2 x 9 LL Tx #2: 8 1.2 x 10 RP Tx #3: 8 1.1 x 4 RA Tx #4: Ciara Mina MD [address] [place] [address],[address] [place] [address], [address], [facility] 8 09:32:56 Thrombosed external hemorrhoids 66774517 Active 2017 Ciara Mina MD [address] [place] [address],[address], [place], [address], [facility] 8 13:27:48 Irritable bowel syndrome with diarrhea 564978295 Active 2017 Ciara Mina MD [address] [place] [address],[address], [place], [address], [facility] 8 13:28:50 Problem Notes None recorded. Procedures Surgical History Date Name Laterality Status Provider Name and Address Organization Details Recorded Time 8 IR completed Ciara Mina MD [address] [place] [address],[address], [place], [address], [facility] [place] 10/17/2017 09:36:01 8 [place] [address] [place] [address],[address], [place], [address], [facility] [place] 09/18/2017 22:26:24 8 IRC completed Ciara Mina MD [address] [place] [address],[address], [place], [address] [place] 09/05/2017 13:26:54 8 Colonoscopy completed Ciara Mina MD [address] [place] [address],[address], [place], [address] 09/05/2017 13:17:47 Hernia Repair completed Giana Mejía [facility] 09/05/2017 09:18:46 Imaging Results None recorded. Procedure Notes None recorded. Medical Equipment None Reported. Allergies No known drug allergies Medications Name Sig Start Date Stop Date Status Note LastModified by Organization Details LastModified Time doxycycline hyclate 100 mg capsule 09/05 completed Not Available Not Available Not Available azithromycin 250 mg tablet 09/05 completed Not Available Not Available Not Available citalopram 10 mg tablet active Not Available Not Available No t Available sumatriptan 100 mg tablet 09/05 completed Not Available Not Available Not Available prazosin 1 mg capsule 09/05 completed Not Available Not Available Not Available prednisone 20 mg tablet 09/05 completed Not Available Not Available Not Available nortriptyline 25 mg capsule active Not Available Not Availabl e Not Available ciprofloxacin 0.3 % eye drops 09/05 completed Not Available Not Available Not Available baclofen 10 mg tablet active Not Available Not Available Not Available cephalexin 500 mg capsule 09/05 completed Not Available Not Available Not Available pantoprazole 40 mg tablet,delayed release 09/05 completed Not Available Not Available Not Available Viagra 100 mg tablet active Not Available Not Available Not Available cefdinir 300 mg capsule 09/05 completed Not Available Not Available Not Available hydroxyzine pamoate 25 mg capsule 09/05 completed Not Available Not Available Not Available Procto-Med HC 2.5 % topical cream perineal applicator 09/05 completed Not Available Not Available Not Available Vitals Date Recorded Body height Body mass index (BMI) Body weight Heart rate Respiratory rate Body temperature Systolic blood pressure Diastolic blood pressure Provider Name and Address Organization Details Last Updated DateTime 8 175.26 cm 29.5 kg/m2 57018.4 7 g 96 /min 12 /min 98 [degF] 130 mm[Hg] 94 mm[Hg] Giana Mejía [facility] 8 09:33:45 Date Recorded Body height Provider Name an d Address Organization Details Last Updated DateTime 09/14/2017 175.26 cm Jeannie Cardoza [facility] 09/14/2017 15:49:55 Date Recorded Body height Provider Name an d Address Organization Details Last Updated DateTime 10/17/2017 175.26 cm Giana Mejía [facility] 10/17/2017 08:57:53 Social History Question Answer Notes LastModified by Organizat ion Details LastModified Time Tobacco Smoking Status Never Smoker Gianagarcia Mejía [facility] 09/05/2017 09:17:51 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 10/17/2017 Information n ot available 10/26/2018 Sex: Unknown Functional Status None recorded. Mental Status None recorded. Family History Relationship Description Onset Age of this Age Resolved Age Notes LastModified by Organization Details LastModified Time Paternal Grandmother Malignant tumor of colon 95 95 Not available 2017 09:17:40 Father No current problems or disability Not available 09/05 13:17:05 Mother No current problems or disability Not available 09/05 13:17:05 Medical History Condition Response Coronary Artery Disease N Other N Atrial Fibrillation N Kidney Stones N Hyperthyroidism N Hernia N Hypothyroidism N COPD N Depression N Glaucoma N Accidental Bowel Leakage N Headaches/Migraines Y Deep Vein Thrombosis N Anxiety Disorder Y Cardiac Dysrhythmia N MRSA/VRE Exposure N Diverticulosis N Cancer N Stroke N Head Trauma N Genital Warts N Crohn's Disease N Liver Disease/Hepatitis N HIV/AIDS N High Cholesterol N Irritable Bowel Syndrome Y Kidney Disease N Autoimmune Disease N Anemia Y Celiac Disease N Arthritis/Gout N Anal/Rectal Trauma/Injury N Diabetes N Cataracts N Bleeding Disorder N Seizures/Epilepsy N Diverticulitis N Asthma N Reflux/GERD Y Ulcerative Colitis N Sleep Apnea N Aneurysm N Heart Disease N Pulmonary Embolism N Hypertension N Colon/Rectal Polyps N Past Encounters Encounter ID Performer Location Encounter Start Date Encounter Closed Date Diagnosis/Indication Diagnosis SNOMED-CT Code Diagnosis ICD10 Code Diagnosis Note [id number] Ciara Mina MD Main Office [address] [address] 09/05/2017 09:11:38 09/05/2017 10:49:20 Pile easily reducible 441111188 K64.1 Stage 2 internal hemorrhoid s/external hemorrhoid s: I do think he would benefit from infrared coagulatio n. Full informed consent for treatment was given including risks/bene fits and alternativ es (including watchful waiting and not doing any procedures ). He wanted to proceed with treatment. His first treatment was done today on the left lateral internal hemorrhoid . Thrombosed external hemorrhoids 73955588 K64.5 He does not require lancing or excision. He understand s that IRC will help the area resolve quicker than it would on its own but it will not make the clot go away completely . Irritable bowel syndrome with diarrhea 137350237 K58.0 He is not really concerned about the multiple BM's. I encouraged him to eat a high fiber diet [id number] Ciara Mina MD Main Office [address] [place] [address] 09/14/2017 15:47:39 09/14/2017 16:18:51 Pile easily reducible 362142185 K64.1 Stage 2 - 3 internal hemorrhoid s/external hemorrhoid s: He is doing well with infrared coagulatio n treatment. His 2nd treatment was done today on the RP. Thrombosed external hemorrhoids 83463198 K64.5 This is completely resolved. Irritable bowel syndrome with diarrhea 069132355 K58.0 This is much better with treating his hemorrhoid s. [id number] Ciara Mina MD Main Office [address] [place] [address] 10/17/2017 08:56:38 10/17/2017 09:20:35 Pile easily reducible 865464944 K64.1 Stage 2 internal hemorrhoid s/external hemorrhoid s: He is doing well with infrared coagulatio n treatment. His 3rd treatment was done today on the right anterior internal hemorrhoid . Irritable bowel syndrome with diarrhea 332602634 K58.0 This is much better with treating his hemorrhoid s. External hemorrhoids 239 19722 K64.4 Improved with IRC. Health Concerns Section Related Observation LastModified by Organization Detai ls LastModified Time None Recorded Concern Status LastModified by Organization Details LastModified Time None Recorded Advance Directives Directive None Recorded Payers Encounter Date Sequence Insurance Name Policy Number Policy Wolfe Covered Member ID Wolfe Member ID Guarantor Name 09/05/2017 1 [facility] [id number] Iftikhar L Dalpozzo [id number] Iftikhar L Dalpozzo 09/05/2017 2 [place] [facility] Iftikhar L Dalpozzo [id number] Iftikhar L Dalpozzo 09/14/2017 1 [facility] [id number] Iftikhar L Dalpozzo [id number] Iftikhar L Dalpozzo 09/14/2017 2 [place] [employer] Iftikhar L Dalpozzo [id number] Iftikhar L Dalpozzo 10/17/2017 1 [facility] [id number] Iftikhar L Dalpozzo [id number] Iftikhar L Dalpozzo 10/17/2017 2 [place] [employer] Iftikhar L Dalpozzo [id number] Iftikhar L Dalpozzo Notes Date Note Type Note Provider Name and Address Organization Details Recorded Time 09/05/2017 text/html This is an extre mariana pleasant 57 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 He states this started with sudden pain and swelling. He did see his PCP shortly after this and was referred to a general surgeon. He was also given a prescription for hydrocortisone cream. Iftikhar did see the surgeon and was told that he needed to immediately have surgery and he would be out of work for 3 weeks after this. Iftikhar did not want to have surgery so he just gave it more time to resolve. He has gotten significantly better but the swelling is not completely gone so he decided to come in for an evaluation and to discuss his treatment options. Bleeding: He has never had visible bleeding with BM's either with this episode or previously. He evidently did have an upper GI bleed that presented with melena and having a vaso vagal episode at work in April,. Evidently he has been taking a lot of aspirin at the time. He has gone off of the aspirin and he states his blood work has been followed and he is no longer anemic. Pain: When this episode started 3 weeks ago he did have pain with sitting and with BM's. The pain is much better currently. Itching: He has had some itching as the thrombosed external has been resolving. It has not been terrible. Discharge: He has never had any difficulty getting or staying clean. He has had no drainage or leakage with this episode. Prolapse: Not that he feels. External swelling: He has had the swelling for about 3 weeks now. It is much smaller and softer now than it had been. Discomfort: He still has some external discomfort but it is not as bad as it had been. He has had previous minor on and off discomfort as well as an internal pressure, sense of being blocked when he is trying to have a BM and a sense of incomplete emptying. Previous Hemorrhoid Treatment: Only the recent prescription cream. Previous Lower GI Endoscopy: He is up to date on his colonoscopies. Bowel Habits: Long standing 4 - 5 times daily. They are always soft. He states if I eat something I end up having to have a BM . He does not feel this is diarrhea - it is not loose/urgent. It is just his normal. Ciara Mina MD [address], [place], [address], [facility] 09/05/2017 13:33:05 09/14/2017 text/html No problem with tx and he is very happy with how he is doing. He states the thrombosed external was much better within a day. He feels his generalized discomfort is much better and he didn't even realize how much discomfort he had been in. He has had no bleeding. His BM's have also been better. He is have 2 BM's daily (and they are soft) as opposed to 4 BM's daily. He is not eating any differently. Ciara Mina MD [address] [place] [address],[address], [place], [address], [facility] [place] 09/18/2017 22:30:14 10/17/2017 text/html Follow up: See previous visits and phone note. He states the bleeding lasted for 2 days and he did have leakage of some blood heavier on the 1st day, much light the day after. The bleeding then stopped and he has not seen any since then. He feels he is a lot better than before any treatment. It is much easier to have a BM and he feels less pressure. It is much easier to get and stay clean. His BM's have been soft and daily. Ciara Mina MD [address] [place] [address],[address], [place], [address], [facility] [place] 10/17/2017 09:37:02
--- OUTSIDE RECORDS SUMMARY | 2024-06-08 14:31 | XMS_ITS | Referral Summary ---
Author Organization [facility] Address [address] [place] [address] Care Team Providers Care General Intern Name Role Phone Unavailable Primary Care Provider Unavailabl e Source Comments [facility],non-owned Affiliates and Associated Physician Practices is amultiple site organization consisting of ambulatory clinics and hospital sitesin [place], [place], [place] and [place]. This disclosure is being madepursuant to the Care Everywhere program and may not contain all information available regarding this patient. Last updated 17.[facility] [employer] Social History Tobacco Use Types Packs/Day Years [...] 10/11/2016 4:00 PM CDT Plan of Treatment Not on file
--- OUTSIDE RECORDS SUMMARY | 2024-06-08 14:31 | XMS_ITS | Referral Summary ---
Author Organization [facility] 163 [facility] Address [address] [place] [address] Care Team Providers Care Metal Storage Worker Name Role Phone Anthony Patrick MD Primary Care Provider [phone] Encounters Date Type Department Care Team Description 03/18/2024 9:00 AM HANDBAG OPERATOR Office Visit [facility] [place] [address] [place] [address] Mery Fisher, SILVIA Acute bacterial sinusitis (Primary Dx) from Last 3 Months Allergies Active Allergy Reactions Criticality Noted Date [...] Date Chronic post-traumatic headache, not intractable 11/04/2022 Social History Tobacco Use Types Packs/Day Years Used Date Smoking Tobacco: Never Smokeless Tobacco: Never Tobacco Cessation:Counseling Given: Not Answered Sex and Gender Information Value Date Recorded Sex Assigned at Not on file Legal Sex Male 11:50 PM HANDBAG OPERATOR Gender Identity Not on file Sexual Orientation Not on file 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 Not on file Not on file Last Filed Vital Signs Vital Sign Reading Time Taken Comments Blood Pressure 138/78 03/18/2024 8:53 AM HANDBAG OPERATOR Pulse 85 03/18/2024 8:53 AM HANDBAG OPERATOR Temperature 36.3 C (97.4 F) 03/18/2024 8:53 AM HANDBAG OPERATOR Respiratory Rate 18 03/18/2024 8:53 AM HANDBAG OPERATOR Oxygen Saturation 98% 03/18/2024 8:53 AM HANDBAG OPERATOR Inhaled Oxygen Concentration - - Weight 92.1 kg (203 lb) 03/18/2024 8:53 AM HANDBAG OPERATOR Height 177.8 cm (5' 10 ) 03/18/2024 8:53 AM HANDBAG OPERATOR Body Mass Index 29.13 03/18/2024 8:53 AM HANDBAG OPERATOR Plan of Treatment Not on file Procedures Procedure Name Priority Date/Time Associated Diagnosis Comments COVID-19 POC Routine 03/18/2024 9:16 AM HANDBAG OPERATOR Acute bacterial sinusitis from Last 3 Months Results * COVID-19 POC (03/18/2024 9:16 AM HANDBAG OPERATOR) COVID-19 RNA PCR POC Negative Not Detected, Negative, Undetected [facility] Nasal 03/18/2024 9:16 AM HANDBAG OPERATOR us Mery Fisher NP POINT OF CARE TEST ORDERABLES Final Result [facility] [address] [place] [address], [facility] from Last 3 Months Insurance [facility] CHO[facility] PLUS Care Teams Metal Storage Worker Relationship Specialty Start Date End Date Anthony Patrick MD PCP - General Internal Medicine 04/27/20
--- OUTSIDE RECORDS SUMMARY | 2024-06-08 14:31 | XMS_ITS | Clinical Summary ---
Author Organization [facility] Address [address] [place] [address] Care Team Providers Care Airfield Engineer Officer Name Role Phone Unavailable Primary Care Provider Unavailabl e Social History Tobacco Use Types Packs/Day Years Used Date Smoking Tobacco: Never Assessed Sex and Gender Information Value Date Recorded Sex Assigned at Not on file Legal Sex Male 10:44 PM CDT Gender Identity Not on file Sexual Orientation Not on file Plan of Treatment Health Maintenance Due Date Last Done Comments Colorectal Cancer Screening Colonoscopy (10 Years) 1959 Hepatitis C 1977 DTaP, Tdap and Td Vaccines ( 1 - Tdap) 1978 Zoster Vaccines (1 of 2) 2009 COVID-19 Vaccine ( - 2023-2 5 season) 2023 Influenza Adult (#1) 2024 Pneumococcal Vaccine: 65+ Ye ars (1 of 1 - PCV) 01/15/2024 RSV Immunization or 60+ Years (1 - 1-dose 75+ series) 2034 Meningococcal B Vaccine Aged Out No l onger eligible based on patient's age to complete this topic Meningococcal Vaccine Aged Out No joseph vega eligible based on patient's age to complete this topic Pneumococcal Vaccine: Pediat rics (0 to 5 Years) and At-Risk Patients (6 to 64 Years) Aged Out No longer eligible b ased on patient's age to complete this topic RSV Immunizations Under 20 Months Aged Out No longer eligible based on patient's age to complete this topic
--- OUTSIDE RECORDS SUMMARY | 2024-06-08 14:31 | XMS_ITS | Continuity of Care Document ---
Author Organization [facility] Address [address] [address] Phone Care Team Providers Care Bottler Name Role Phone Cary Michael DO Unavailable Unavailable Medications Medication Instructions Dosage Effective Dates (start - stop) Status Comments Naprosyn 500 mg Tab take 1 tablet (500MG ) by oral route 2 times every day with food 500 MG - Active Procedures Procedure Date Office/outpatient visit,[facility] 2010 Supplemental Report Office/outpatient visit,[facility] 2010 X-ray exam of ankle, complete 1 Advance Directives Directive Yes / No Effective Date File Name No Information Encounters Encounter Description Practice Location Reason(s) For Visit Diagnoses Date Provider Providers Copied on Encounter Office/outpat ient visit,[facility], [address] [place] [address], [id number], tel:[phone] [facility] SPRAIN OF [place] DELTOIDSPRAIN OF ANKLE NEC 1 Fernanda Townsend. [address] [place] [address], [address], [id number] , [place]. tel: [phone] Office/outpat ient visit,[facility], [address] [place] [address], [id number], [place] tel:[phone] [facility] SPRAIN OF ANKLE NECJOINT PAIN-ANKLE 1 Fernanda Townsend. [address] [place] [address], [address], [id number] , [place]. tel:[phone] Family History Family Member Type Diagnosis Age At Onset No Information Payers Payer name Insurance type Covered libertarian ID Authorjina armidadenise(s) Accident [employer] [facility] [id number] Social History Type Description Quantity Date Captured [...]
[2024-06-08 15:01] LABS: Influenza A QL RT-PCR Negative (Negative); Influenza B QL RT-PCR Negative (Negative); RSV RNA, RT-PCR Negative (Negative); SARS-CoV-2 RNA PCR Negative (Negative)
== END 2024-06-08 14:16 | disposition home or self-care (01) ==
LOC: CHSLAB 14:17
PROVIDERS: PCP Internal Medicine; Visit Provider Internal Medicine
DX: U07.1 COVID-19 (principal); J06.9 Acute upper respiratory infection, unspecified
CPT/HCPCS: 87637

== ENCOUNTER 2024-07-12 09:27 | Outpatient (CLI) | payer OTHER, SELFPAY ==
[2024-07-12 09:41] LABS: Basophils Absolute Auto 0.06 K/mm3 (0.00-0.10); Eosinophils Absolute Auto 0.26 K/mm3 (0.02-0.50); Eosinophils Percent Auto 4.5 % (1.0-6.0); Hematocrit 44.9 % (37.0-46.0); Hemoglobin 14.5 g/dL (12.4-15.3); Immature Granulocyte Absolute 0.03 K/mm3 (0.00-0.00); Immature Granulocyte Percent A 0.5 % (0.0-0.0); Lymphocytes Absolute Auto 1.76 K/mm3 (1.10-4.50); Lymphocytes Percent Auto 30.7 % (18.0-42.0); Mean Corpuscular HGB Conc 32.3 g/dL (32-36); Mean Corpuscular Hemoglobin 30.6 pg (27.0-31.0); Mean Corpuscular Volume 94.7 fL (78.0-102.0); Mean Platelet Volume 9.8 fl (8.7-11.0); Monocytes Absolute Auto 0.57 K/mm3 (0.10-0.90); Monocytes Percent Auto 9.9 % (2.0-11.0); Neutrophils Absolute Auto 3.06 K/mm3 (1.70-7.20); Neutrophils Percent Auto 53.4 % (50.0-70.0); Platelet Count Result 273 K/mm3 (150-420); Red Blood Count 4.74 M/mm3 (4.70-6.10); Red Cell Distribution Width 12.1 % (11.6-14.4); White Blood Count 5.7 K/mm3 (4.8-10.8)
--- OUTSIDE RECORDS SUMMARY | 2024-07-12 09:47 | XMS_ITS | Continuity of Care Document ---
Author Organization [facility] Address [address] [facility] [address] [address] Phone Care Team Providers Care Insulation Blanket Maker Name Role Phone Cary Michael DO Unavailable Unavailable Medications Medication Instructions Dosage Effective Dates (start - stop) Status Comments Naprosyn 500 mg Tab take 1 tablet (500MG ) by oral route 2 times every day with food 500 MG - Active Procedures Procedure Date Office/outpatient visit,[facility] 2010 Supplemental Report Office/outpatient visit,[facility] 2010 X-ray exam of ankle, complete 1 Advance Directives Directive Yes / No Effective Date File Name No Information Encounters Encounter Description Practice Location Reason(s) For Visit Diagnoses Date Provider Providers Copied on Encounter Office/outpat ient visit,[facility], [address] [place] [address], [id number], tel:[phone] [facility] [employer] [facility] SPR[place] DELTOIDSPRAIN OF ANKLE NEC 1 Fernanda Townsend. [address] [place] [address], [address], [id number] , [place]. tel: [phone] Office/outpat ient visit,[facility] [employer] [facility], [address] [place] [address], [id number], [place] tel:[phone] [facility] [employer] [facility] SPRAIN OF [place]KLE NECJOINT PAIN-ANKLE 1 Fernanda Townsend. [address] [place] [address], [address], [id number] , [place]. tel:[phone] Family History Family Member Type Diagnosis Age At Onset No Information Payers Payer name Insurance type Covered alliance party ID Authorjina armidadenise(s) Acc[employer] [facility] [id number] Social History Type Description Quantity Date Captured [...]
--- OUTSIDE RECORDS SUMMARY | 2024-07-12 09:47 | XMS_ITS | Referral Summary ---
Author Organization [facility] 163 [facility] Address [address] [place] [address] Care Team Providers Care Ball Ender Name Role Phone Anthony Patrick MD Primary Care Provider [phone] Encounters Date Type Department Care Team Description 06/14/2024 7:00 PM CDT Office Visit [facility] [place] [address] [place] [address] Mery [place], SILVIA Acute bacterial sinusitis (Primary Dx); Exacerbation of asthma, unspecified asthma severity, unspecified whether persistent from Last 3 Months Allergies Active Allergy Reactions Criticality Noted Date Comments Shellfish Containing Products Redness Low 2020 Medications baclofen (LIORESAL) 10 mg tablet 04/08/19 21 Active fluticasone propionate (FLONASE) 50 mcg/actuation nasal sprayIndication s:Acute pharyngitis, unspecified etiology Administer 2 sprays into each nostril daily 16 g 04/27/19 21 Active baclofen (LIORESAL) 10 mg tablet Active verapamil SR (CALAN SR) 120 mg CR tablet 04/13/19 23 Active nortriptyline (PAMELOR) 10 mg capsule Take 1 capsule (10 mg total) by mouth nightly 30 capsule 1 11/05/19 23 Active albuterol HFA (PROVENTIL HFA,VENTOLIN HFA,PROAIR HFA) 90 mcg/actuation inhalerIndicati ons:Subacute cough Inhale 2 puffs every 6 (six) hours as needed for wheezing 3 each 12/12/19 23 Active losartan (COZAAR) 50 mg tablet Take 1 tablet (50 mg total) by mouth daily 05/01/19 24 Active atorvastatin (LIPITOR) 20 mg tablet Take 1 tablet (20 mg total) by mouth daily 05/07/[address] (VOLTAREN) 50 mg EC tablet Take 1 tablet (50 mg total) by mouth 2 (two) times a day 12/20/19 24 Active hydrocortisone (ANUSOL-HC) 2.5 % rectal cream INSERT 1 APPLICATORFUL RECTALLY DAILY NEEDED FOR HEMORRHOIDS 01/04/20 24 Active azithromycin (ZITHROMAX) 250 mg tablet Take two tabs first day, then one tab daily x 4 days 6 tablet 01/18/20 24 Active budesonide-form oteroL (SYMBICORT) 80-4.5 mcg/actuation inhaler TAKE 2 PUFFS BY MOUTH TWICE A DAY IN THE MORNING AND IN THE EVENING 05/21/19 25 Active cefdinir (OMNICEF) 300 mg capsule Take 1 capsule (300 mg total) by mouth every 12 (twelve) hours 06/09/19 25 025 Discontinu ed(Therapy completed) amoxicillin-cla vulanate (AUGMENTIN) 875-125 mg per tabletIndicatio ns:Acute bacterial sinusitis Take 1 tablet by mouth 2 (two) times a day for 7 days 14 tablet 06/15/19 25 025 predniSONE (DELTASONE) 20 mg tabletIndicatio ns:Exacerbation of asthma, unspecified asthma severity, unspecified whether persistent Take 1 tablet (20 mg) by mouth 2 (two) times a day for 5 days 10 tablet 06/15/19 25 025 Active Problems Problem Noted Date Diagnosed Date Chronic post-traumatic headache, not intractable 11/04/2022 Social History Tobacco Use Types Packs/Day Years Used Date Smoking Tobacco: Never Smokeless Tobacco: Never Tobacco Cessation:Counseling Given: Not Answered Sex and Gender Information Value Date Recorded Sex Assigned at Not on file 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 Gender Identity Not on file Sexual Orientation Not on file 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 Not on file Not on file Last Filed Vital Signs Vital Sign Reading Time Taken Comments Blood Pressure 142/80 06/14/2024 6:57 PM CDT Pulse 97 06/14/2024 6:57 PM CDT Temperature 37.3 C (99.2 F) 06/14/2024 6:57 PM CDT Respiratory Rate 18 06/14/2024 6:57 PM CDT Oxygen Saturation 97% 06/14/2024 6:57 PM CDT Inhaled Oxygen Concentration - - Weight 96.2 kg (212 lb) 06/14/2024 6:57 PM CDT Height 177.8 cm (5' 10 ) 06/14/2024 6:57 PM CDT Body Mass Index 30.42 06/14/2024 6:57 PM CDT Plan of Treatment Not on file Insurance [facility] PLUS [place] [id number] Care Teams Ball Ender Relationship Specialty Start Date End Date Anthony Patrick MD PCP - General Internal Medicine 04/27/20
--- OUTSIDE RECORDS SUMMARY | 2024-07-12 09:47 | XMS_ITS | Data Portability ---
Author Organization [facility], Main Office Address [address] [address] [facility] [address] [place] [address] Care Team Providers Care Sales Representative Leather Goods Name Role Phone AMADA MAN Primary Care Provider [phone] Assessment No assessment recorded. Plan of Treatment [...] 35 40 45 50* 55 60}} minutes [id number] with the patient and over 50% of [...] Organization Details Recorded Time Pile easily reducible 040443663 Active 2017 Tx #1: 09/05/17 1.2 x 9 LL Tx #2: 8 1.2 x 10 RP Tx #3: 8 1.1 x 4 RA Tx #4: Ciara Mina MD [address] [place] [address],[address] [place] [address], [address], [facility] 8 09:32:56 Thrombosed external hemorrhoids 16970127 Active 2017 Ciara Mina MD [address] [place] [address],[address], [place], [address], [facility] 8 13:27:48 Irritable bowel syndrome with diarrhea 736759342 Active 2017 Ciara Mina MD [address] [place] [address],[address], [place], [address], [facility] 8 13:28:50 Problem Notes None recorded. Procedures Surgical History Date Name Laterality Status Provider Name and Address Organization Details Recorded Time 8 IR completed Ciara Mina MD [address] [place] [address],[address], [place], [address], [facility] [place] 10/17/2017 09:36:01 8 [place] [address] [place] [address],[address], [place], [address], [facility] [place] 09/18/2017 22:26:24 8 IRC completed Ciara Mina MD [address] [place] [address],[address], [place], [address] [place] 09/05/2017 13:26:54 8 Colonoscopy completed Ciara Mina MD [address] [place] [address],[address], [place], [address] 09/05/2017 13:17:47 Hernia Repair completed Giana Mejía [facility] 09/05/2017 09:18:46 Imaging Results None recorded. Procedure [...] Updated DateTime 8 175.26 cm 29.5 kg/m2 28294.4 7 g 96 /min 12 /min 98 [degF] 130 mm[Hg] 94 mm[Hg] Giana Mejía [facility] 8 09:33:45 Date Recorded Body height Provider Name an d Address Organization Details Last Updated DateTime 09/14/2017 175.26 cm Jeannie Cardoza [facility] 09/14/2017 15:49:55 Date Recorded Body height Provider Name an d Address Organization Details Last Updated DateTime 10/17/2017 175.26 cm Giana Mejía [facility] 10/17/2017 08:57:53 Social History Question Answer Notes LastModified by Organizat ion Details LastModified Time Tobacco Smoking Status Never Smoker Gianagarcia Mejía [facility] 09/05/2017 09:17:51 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 [...] Kidney Stones N Hyperthyroidism N Hernia N Depression N COPD N Glaucoma N Hypothyroidism N Accidental Bowel Leakage N Headaches/Migraines Y Deep Vein Thrombosis N Anxiety Disorder Y Cardiac Dysrhythmia N MRSA/VRE Exposure N Diverticulosis N Cancer N Stroke N Head Trauma N Crohn's Disease N Genital Warts N Liver Disease/Hepatitis N HIV/AIDS N High Cholesterol N Irritable Bowel Syndrome Y Autoimmune Disease N Kidney Disease N Anemia Y Arthritis/Gout N Celiac Disease N Anal/Rectal Trauma/Injury N Diabetes N Cataracts [...] Note 2990 Ciara Mina MD Main Office [address] [address] 09/05/2017 09:11:38 09/05/2017 10:49:20 Pile easily reducible 894916497 K64.1 Stage 2 internal hemorrhoid s/external hemorrhoid s: I do think he would benefit from infrared coagulatio n. Full informed consent for treatment was given including risks/bene fits and alternativ es (including watchful waiting and not doing any procedures ). He wanted to proceed with treatment. His first treatment was done today on the left lateral internal hemorrhoid . Thrombosed external hemorrhoids 47357570 K64.5 He does not require lancing or excision. He understand s that IRC will help the area resolve quicker than it would on its own but it will not make the clot go away completely . Irritable bowel syndrome with diarrhea 276684584 K58.0 He is not really concerned about the multiple BM's. I encouraged him to eat a high fiber diet 3069 Ciara Mina MD Main Office [address] [facility] [address] [place] [address] 09/14/2017 15:47:39 09/14/2017 16:18:51 Pile easily reducible 060558381 K64.1 Stage 2 - 3 internal hemorrhoid s/external hemorrhoid s: He is doing well with infrared coagulatio n treatment. His 2nd treatment was done today on the RP. Thrombosed external hemorrhoids 19943302 K64.5 This is completely resolved. Irritable bowel syndrome with diarrhea 371329772 K58.0 This is much better with treating his hemorrhoid s. 3358 Ciara Mina MD Main Office [address] [facility] [address] [place] [address] 10/17/2017 08:56:38 10/17/2017 09:20:35 Pile easily reducible 210024065 K64.1 Stage 2 internal hemorrhoid s/external hemorrhoid s: He is doing well with infrared coagulatio n treatment. His 3rd treatment was done today on the right anterior internal hemorrhoid . Irritable bowel syndrome with diarrhea 430531945 K58.0 This is much better with treating his hemorrhoid s. External hemorrhoids 239 [address] K64.4 Improved with IRC. Health Concerns Section Related Observation LastModified by Organization Detai ls LastModified Time None Recorded Concern Status LastModified by Organization Details LastModified Time None Recorded Advance Directives Directive None Recorded Payers Encounter Date Sequence Insurance Name Policy Number Policy Wolfe Covered Member ID Wolfe Member ID Guarantor Name 09/05/2017 1 [facility] [id number] Iftikhar L Dalpozzo [id number] Iftikhar L Dalpozzo 09/05/2017 2 MEDICARE [place]: [facility] Iftikhar L Dalpozzo [id number] Iftikhar L Dalpozzo 09/14/2017 1 [facility] [id number] Iftikhar L Dalpozzo [id number] Iftikhar L Dalpozzo 09/14/2017 2 [place]ICARE [place]: [employer] Iftikhar L Dalpozzo [id number] Iftikhar L Dalpozzo 10/17/2017 1 [facility] [id number] Iftikhar L Dalpozzo [id number] Iftikhar L Dalpozzo 10/17/2017 2 [place]IC[place] [employer] Iftikhar L Dalpozzo [id number] Iftikhar L Dalpozzo Notes Date Note Type Note Provider Name and Address Organization Details Recorded Time 09/05/2017 text/html This is an extre mariana pleasant 57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 Ciara Mina MD [address] [facility], [place], [address], [facility] 09/05/2017 13:33:05 09/14/2017 text/html [...] not eating any differently. Ciara Mina MD [address] [place] [address],[address], [place], [address], [facility] [place] 09/18/2017 22:30:14 10/17/2017 text/html Follow up: See [...] been soft and daily. Ciara Mina MD [address] [place] [address],[address], [place], [address], [facility] [place] 10/17/2017 09:37:02
--- OUTSIDE RECORDS SUMMARY | 2024-07-12 09:47 | XMS_ITS | Clinical Summary ---
Author Organization [facility] Address [address] [place] [address] Care Team Providers Care Plumber Supervisor Name Role Phone Unavailable Primary Care Provider Unavailabl e Source Comments [facility] [employer],non-owned Affiliates and Associated Physician Practices is amultiple site organization consisting of ambulatory clinics and hospital sitesin [place], [place], [place] and [place]. This disclosure is being madepursuant to the Care Everywhere program and may not contain all information available regarding this patient. Last updated 17.[facility] [employer] Social History Tobacco Use Types Packs/Day Years [...] VACCINE ( - 2023-2 5 season) 2023 DEPRESSION SCREENING 04/04/2024 INFLUENZA VACCINE (Season Ended) 2024 Respiratory Syncytial Virus (RSV) Vaccine Pt: or [...] to complete this topic MENINGOCOCCAL (Group B) VACC INE SHARED DECISION-MAKING Aged Out No longer eligibl e based on patient's age to complete this topic MENINGOCOCCAL GROUPS A/C/Y/W VACCINE Aged Out No longer eligible b ased on patient's age to complete this topic
--- OUTSIDE RECORDS SUMMARY | 2024-07-12 09:47 | XMS_ITS | Clinical Summary ---
Author Organization [facility] 163 [facility] Address [address] [place] [address] Care Team Providers Care Seafood Fisherman Name Role Phone Anthony Patrick MD Primary Care Provider [phone] Allergies Active Allergy Reactions Criticality Noted Date [...] Description 06/14/2024 7:00 PM CDT Office Visit [facility] Care at [address] [place] [address] Mery [place] NP Acute bacterial sinusitis (Primary Dx); Exacerbation of asthma, unspecified asthma severity, unspecified whether persistent from Last 3 Months Surgical History Surgery [...] on file 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 Gender Identity Not on file Sexual Orientation [...] 06/14/2024 6:57 PM CDT Plan of Treatment Health Maintenance Due Date Last Done Comments Colon Cancer Screening-Colonoscopy 1959 Depression Screening 1959 Fall Risk Assessment 1959 Hepatitis C Screening 1959 Prostate Cancer Screening-PSA 1959 Hepatitis B Screening 1977 Pneumococcal vaccine 65+ (1 of 2 - PCV) 1978 Zoster Vaccine (1 of 2) 2009 Influenza Vaccine (#1) 2023 Well Visit 65+ 01/15/2024 DTaP/Tdap/Td Vaccine (3 - Td or Tdap) 10/11/2026 10/11/2016, 09/24/2009, 09/24/2009 Insurance [facility] CHO[facility] PLUS [facility] Address: [place] [address] [facility] PLUS [facility]O Address: [place] [address] [facility] CHOICE PLUS [facility] HMO/PPO Address: [address] [place] [address] Care Teams Seafood Fisherman Relationship Specialty Start Date End Date Anthony Patrick MD PCP - General Internal Medicine 04/27/20
--- OUTSIDE RECORDS SUMMARY | 2024-07-12 09:47 | XMS_ITS | Clinical Summary ---
Author Organization [facility] Address [address] [place] [address] Care Team Providers Care Software Installer Name Role Phone Unavailable Primary Care Provider [...] Vaccine ( - 2023-2 5 season) 2023 Pneumococcal Vaccine: 65+ Ye ars (1 of [...]
--- OUTSIDE RECORDS SUMMARY | 2024-07-12 09:47 | XMS_ITS | Continuity of Care Document ---
Author Organization [facility] Address [address] [facility] [place] [address] Phone Care Team Providers Care Cardroom Plastic Card Grader Name Role Phone Filipe Elena MD Unavailable [...] Copied on Encounter OFFICE/OUTPA TIENT VISIT EST [facility], [address] [facility] [address], [place], [address], [place] tel:[phone] [facility] Other intervertebr al disc displacement , lumbar regionLumbag o with sciatica, right sideLumbago with sciatica, left sideSpinal stenosis of lumbar regionBody mass index (BMI) 28.0-28.9, adult 0-201 7 Kassy Dent. [address] [place], [place], [id number]. tel:[phone] OFFICE/OUTPA TIENT VISIT [facility], [address] [facility] [address], [place], [address], tel:[phone] [facility] LOW BACK PAIN (chief complaint)B POSTERIOR LEG PAIN (chief complaint)DE NIES NUMBNESS (chief complaint)MR I AT CY (chief complaint)MN EVIOUS CHIROPRACTOR (chief complaint) Lumbago with sciatica, left sideLumbago with sciatica, right sideOther intervertebr al disc displacement , lumbar region 6 Kassy Dent. [address] [facility], [place], [place], [id number]. tel:[phone] Referring Provider: Cody Lin, [address] [place] [address] [address], [place], [facility]. tel:[phone] [facility], [address], [address], tel:[phone] [facility] Right lumbar radiculitisP rimary osteoarthrit is of right kneeCrush injury 6 Duglas Stacey. [address] [facility] [address] [place] [address], [id number]. tel:[phone] Family History Family Member Type Diagnosis Age At Onset Mother Problem (finding) coronary arterioscleros is Mother Problem (finding) osteoporosis Payers Payer name Insurance type Covered constitution party ID Authorjina tidenise(s) Medicare E2 OT [id number] Social History Type Description Quantity Date Captured [...]
[2024-07-14 14:58] LABS: Alternaria alternata IgE <0.10 kU/L; Alternaria alternata IgE Class 0; Aspergillus fumigatus IgE <0.10 kU/L; Bermuda Grass (G2) IgE <0.10 kU/L; Bermuda Grass (G2) IgE Class 0; Cat Dander IgE 0.11 kU/L; Cat Dander IgE Class 0/1; Cladosporium herbarum IgE <0.10 kU/L; Cladosporium herbarum IgE Clas 0; Cockroach IgE <0.10 kU/L; Cockroach IgE Clas 0; Common Ragweed IgE Class 0/1; Cottonwood IgE <0.10 kU/L; Dermatophagoides Farinae Class 0/1; Dermatophagoides Pterony Class 0/1; Dermatophagoides Pteronyssinus 0.21 kU/L; Dog Dander IgE <0.10 kU/L; Elm (T8) IgE <0.10 kU/L; Elm (T8) IgE Class 0; Hickory/Pecan IgE <0.10 kU/L; Hickory/Pecan IgE Class 0; Immunoglobulin E 11 kU/L (<OR=114); Maple Box Elder IgE Class 0; Mountain Cedar IgE <0.10 kU/L; Mountain Cedar IgE Class 0; Mouse Urine Proteins IgE <0.10 kU/L; Mouse Urine Proteins IgE Class 0; Oak IgE <0.10 kU/L; Peniciliium notatum class 0; Penicillium notatum (M1) IgE <0.10 kU/L; Rough Marsh <0.10 kU/L; Rough Marsh Elder Class 0; Rough Pigweed (W14) IgE <0.10 kU/L; Rough Pigweed (W14) IgE Class 0; Russian Thistle <0.10 kU/L; Sycamore IgE <0.10 kU/L; Sycamore IgE Class 0; Timothy Grass IgE <0.10 kU/L; Timothy Grass IgE Class 0; Walnut Tree IgE <0.10 kU/L; Walnut Tree IgE Class 0; White Ash IgE Class 0; White Mulberry IgE <0.10 kU/L; White Mulberry IgE Class 0
== END 2024-07-12 09:28 | disposition home or self-care (01) ==
LOC: CHSLAB 09:29
PROVIDERS: PCP Internal Medicine; Visit Provider Nurse Practitioner Family
DX: J30.9 Allergic rhinitis, unspecified (principal); J45.909 Unspecified asthma, uncomplicated
CPT/HCPCS: 36415; 82785; 85025; 86003

== ENCOUNTER 2024-07-20 09:06 | Outpatient (CLI) | payer OTHER, SELFPAY ==
--- NOTE | ~2024-07-20 | CT_ITS ---
CT Scan of the Chest without Contrast: Clinical Indication: Chest pain, cough Technique: Contiguous sections were acquired throughout the chest without intravenous contrast. Dose reduction technique was used on this scan by utilizing automated exposure control and iterative recon struction technique. The dose-length product (DLP) was 255.03 mGy-cm. Findings: There is no evidence of any significant mediastinal, hilar or axillary lymphadenopathy. The mediastin al soft tissues appear normal. There is no evidence of pleural or pericardial effusion. There is a 9 mm nodule in the posterior medial left lower lobe (axial image 66). Images through the upper abdomen reveal no abnormalities. Impression: 9 mm nodule in the posterior medial left lower lobe. According to Fleischner Society criteria, recomm end either 3 month follow-up CT, PET/CT, or attempted tissue sampling. Reviewed, dictated and finalized at [facility]. Impression: 9 mm nodule in the posterior medial left lower lobe. According to Fleischner [facility] criteria, recommend either 3 month follow-up CT, PET/CT, or attempted tis danielle sampling.
--- OUTSIDE RECORDS SUMMARY | 2024-07-20 09:12 | XMS_ITS | Data Portability ---
Author Organization [facility], Main Office Address [address] [address] [place] [address] Care Team Providers Care Jig Box Operator Name Role Phone AMADA MAN Primary Care Provider [phone] Assessment No assessment recorded. Plan of Treatment [...] 35 40 45 50* 55 60}} minutes [id number] with the patient and over 50% of [...] Organization Details Recorded Time Pile easily reducible 208234689 Active 2017 Tx #1: 09/05/17 1.2 x 9 LL Tx #2: 8 1.2 x 10 RP Tx #3: 8 1.1 x 4 RA Tx #4: Ciara Mina MD [address] [place] [address],[address] [place] [address], [address], [facility] 8 09:32:56 Thrombosed external hemorrhoids 52871900 Active 2017 Ciara Mina MD [address] [place] [address],[address], [place], [address], [facility] 8 13:27:48 Irritable bowel syndrome with diarrhea 380152235 Active 2017 Ciara Mina MD [address] [place] [address],[address], [place], [address], [facility] 8 13:28:50 Problem Notes None recorded. Procedures Surgical History Date Name Laterality Status Provider Name and Address Organization Details Recorded Time 8 IR completed Ciara Mina MD [address] [place] [address],[address], [place], [address], [facility] [place] [place] 10/17/2017 09:36:01 8 [place] [address] [place] [address],[address], [place], [address], [facility] [place] 09/18/2017 22:26:24 8 IRC completed Ciara Mina MD [address] [place] [address],[address], [place], [address] [place] 09/05/2017 13:26:54 8 Colonoscopy completed Ciara Mina MD [address] [place] [address],[address], [place], [address] Hemorrh[facility] 09/05/2017 13:17:47 Hernia Repair completed Giana Mejía [facility] 09/05/2017 09:18:46 Imaging Results None recorded. [...] Updated DateTime 8 175.26 cm 29.5 kg/m2 92891.4 7 g 96 /min 12 /min 98 [degF] 130 mm[Hg] 94 mm[Hg] Giana Mejía [facility] 8 09:33:45 Date Recorded Body height Provider Name an d Address Organization Details Last Updated DateTime 09/14/2017 175.26 cm Jeannie Cardoza [facility] 09/14/2017 15:49:55 Date Recorded Body height Provider Name an d Address Organization Details Last Updated DateTime 10/17/2017 175.26 cm Giana Mejía [facility] 10/17/2017 08:57:53 Social History Question Answer Notes LastModified by Organizat ion Details LastModified Time Tobacco Smoking Status Never Smoker Gianagarcia Mejía [facility] 09/05/2017 09:17:51 What Is Your Occupation? [...] N Hernia N Depression N COPD N Hypothyroidism N Glaucoma N Accidental Bowel Leakage N Headaches/Migraines Y Deep Vein Thrombosis N Cardiac Dysrhythmia N Anxiety Disorder Y MRSA/VRE Exposure N Diverticulosis N Cancer N [...] Note 2990 Ciara Mina MD Main Office [address] [address] 09/05/2017 09:11:38 09/05/2017 10:49:20 Pile easily reducible 603119545 K64.1 Stage 2 internal hemorrhoid s/external hemorrhoid s: I do think he would benefit from infrared coagulatio n. Full informed consent for treatment was given including risks/bene fits and alternativ es (including watchful waiting and not doing any procedures ). He wanted to proceed with treatment. His first treatment was done today on the left lateral internal hemorrhoid . Thrombosed external hemorrhoids 27054337 K64.5 He does not require lancing or excision. He understand s that IRC will help the area resolve quicker than it would on its own but it will not make the clot go away completely . Irritable bowel syndrome with diarrhea 181443237 K58.0 He is not really concerned about the multiple BM's. I encouraged him to eat a high fiber diet 3069 Ciara Mina MD Main Office [address] [facility] [address] [place] [address] 09/14/2017 15:47:39 09/14/2017 16:18:51 Pile easily reducible 407844905 K64.1 Stage 2 - 3 internal hemorrhoid s/external hemorrhoid s: He is doing well with infrared coagulatio n treatment. His 2nd treatment was done today on the RP. Thrombosed external hemorrhoids 12740916 K64.5 This is completely resolved. Irritable bowel syndrome with diarrhea 388350985 K58.0 This is much better with treating his hemorrhoid s. 3358 Ciara Mina MD Main Office [address] [facility] [address] [place] [address] 10/17/2017 08:56:38 10/17/2017 09:20:35 Pile easily reducible 962756389 K64.1 Stage 2 internal hemorrhoid s/external hemorrhoid s: He is doing well with infrared coagulatio n treatment. His 3rd treatment was done today on the right anterior internal hemorrhoid . Irritable bowel syndrome with diarrhea 684975504 K58.0 This is much better with treating his hemorrhoid s. External hemorrhoids 239 17945 K64.4 Improved with IRC. Health Concerns Section Related Observation LastModified by Organization Detai ls LastModified Time None Recorded Concern Status LastModified by Organization Details LastModified Time None Recorded Advance Directives Directive None Recorded Payers Encounter Date Sequence Insurance Name Policy Number Policy Wolfe Covered Member ID Wolfe Member ID Guarantor Name 09/05/2017 1 [facility] [id number] Iftikhar L Dalpozzo [id number] Iftikhar L Dalpozzo 09/05/2017 2 [place] [facility] Iftikhar L Dalpozzo [id number] Iftikhar L Dalpozzo 09/14/2017 1 [facility] [id number] Iftikhar L Dalpozzo [id number] Iftikhar L Dalpozzo 09/14/2017 2 [place] [employer] Iftikhar L Dalpozzo [id number] Iftikhar L Dalpozzo 10/17/2017 1 [facility] [id number] Iftikhar L Dalpozzo [id number] Iftikhar L Dalpozzo 10/17/2017 2 [place] [employer] Iftikhar L Dalpozzo [id number] Iftikhar L Dalpozzo Notes Date Note Type Note Provider Name and Address Organization Details Recorded Time 09/05/2017 text/html This is an extre mariana pleasant 57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 Ciara Mina MD [address] [facility], [place], [address], [facility] 09/05/2017 13:33:05 09/14/2017 [...] not eating any differently. Ciara Mina MD [address] [place] [address],[address], [place], [address], [facility] [place] 09/18/2017 22:30:14 10/17/2017 text/html Follow up: See [...] been soft and daily. Ciara Mina MD [address] [place] [address],[address], [place], [address], [facility] [place] 10/17/2017 09:37:02
--- OUTSIDE RECORDS SUMMARY | 2024-07-20 09:12 | XMS_ITS | Continuity of Care Document ---
Author Organization [facility] Address [address] [facility] [address] [place] [address] Phone Care Team Providers Care Chip Bin Operator Name Role Phone Filipe Elena MD Unavailable [...] Copied on Encounter OFFICE/OUTPA TIENT VISIT EST [facility], [address], [place], [address], [place] tel:[phone] [facility] Other intervertebr al disc displacement , lumbar regionLumbag o with sciatica, right sideLumbago with sciatica, left sideSpinal stenosis of lumbar regionBody mass index (BMI) 28.0-28.9, adult 0-201 7 Kassy Dent. [address] [place], [place], [id number]. tel:[phone] OFFICE/OUTPA TIENT VISIT [facility], [address] [facility] [address], [place], [address], tel:[phone] [facility] LOW BACK PAIN (chief complaint)B POSTERIOR LEG PAIN (chief complaint)DE NIES NUMBNESS (chief complaint)MR I AT CY (chief complaint)OK EVIOUS CHIROPRACTOR (chief complaint) Lumbago with sciatica, left sideLumbago with sciatica, right sideOther intervertebr al disc displacement , lumbar region [address] [facility], [place], [place], [id number]. tel:[phone] Referring Provider: Cody Lin, [address] [place] [address] [address], [place], [place], [facility]. tel:[phone] [facility], [address], [address], tel:[phone] [facility] Right lumbar radiculitisP rimary osteoarthrit is of right kneeCrush injury 6 Duglas Stacey. [address] [facility] [address] [place] [address], [id number]. tel:[phone] Family History Family Member Type Diagnosis Age At Onset Mother Problem (finding) coronary arterioscleros is Mother Problem (finding) osteoporosis Payers Payer name Insurance type Covered democrat ID Authorjina tidenise(s) Medicare E2 OT [id number] Social History Type Description Quantity Date Captured [...]
--- OUTSIDE RECORDS SUMMARY | 2024-07-20 09:12 | XMS_ITS | Referral Summary ---
Author Organization [facility] [address] [facility] Address [address] [place] [address] Care Team Providers Care Glassware Finisher Name Role Phone Anthony Patrick MD Primary Care Provider [phone] Encounters Date Type Department Care Team Description 06/14/2024 7:00 PM CDT Office Visit [facility] [place] [address] [place] [address] Mery Fisher, SILVIA Acute bacterial [...] AND IN THE EVENING 05/21/19 25 Active amoxicillin-cla vulanate (AUGMENTIN) 875-125 mg per tabletIndicatio ns:Acute bacterial sinusitis Take 1 tablet by mouth 2 (two) times a day for 7 days 14 tablet 06/15/19 25 025 Active Problems Problem Noted Date Diagnosed Date Chronic post-traumatic headache, not intractable 11/04/2022 Social History Tobacco Use Types Packs/Day Years Used Date Smoking Tobacco: Never Smokeless Tobacco: Never Tobacco Cessation:Counseling Given: Not Answered Sex and Gender Information Value Date Recorded Sex Assigned at Not on file 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
--- OUTSIDE RECORDS SUMMARY | 2024-07-20 09:12 | XMS_ITS | Clinical Summary ---
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
--- OUTSIDE RECORDS SUMMARY | 2024-07-20 09:12 | XMS_ITS | Continuity of Care Document ---
Author Organization [facility] Address [address] [address] Phone Care Team Providers Care Bark Tanner Name Role Phone Cary Michael DO Unavailable Unavailable Medications Medication Instructions Dosage Effective Dates (start - stop) Status Comments Naprosyn 500 mg Tab take 1 tablet (500MG ) by oral route 2 times every day with food 500 MG - Active Procedures Procedure Date Office/outpatient visit,[facility] 2010 Supplemental Report Office/outpatient visit,[facility] 2010 X-ray exam of ankle, complete 1 Advance Directives Directive Yes / No Effective Date File Name No Information Encounters Encounter Description Practice Location Reason(s) For Visit Diagnoses Date Provider Providers Copied on Encounter Office/outpat ient visit,[facility], [address] [place] [address], [id number], tel:[phone] [email or web address] SPRAIN OF ANKLE DELTOIDSPRAIN OF ANKLE NEC 1 Fernanda Townsend. [address] [place] [address], [address], [id number] , [place]. tel: [phone] Office/outpat ient visit,[email or web address], [address] [place] [address], [id number], [place] tel:[phone] [email or web address] SPRAIN OF ANKLE NECJOINT PAIN-ANKLE 1 Fernanda Townsend. [address] [place] [address], [address], [id number] , [place]. tel:[phone] Family History Family Member Type Diagnosis Age At Onset No Information Payers Payer name Insurance type Covered constitution party ID Authorjina armidadenise(s) [employer] [facility] [id number] Social History Type Description Quantity Date Captured [...]
--- OUTSIDE RECORDS SUMMARY | 2024-07-20 09:12 | XMS_ITS | Clinical Summary ---
Author Organization [facility] Address [address] [place] [address] Care Team Providers Care Personnel Clerks Supervisor Name Role Phone Unavailable Primary Care [...] Td Vaccines ( 1 - Tdap) 1978 Pneumococcal Vaccine: 50+ Ye ars (1 of 1 - PCV) 2009 Zoster Vaccines (1 of 2) 2009 COVID-19 Vaccine ( - 2023-2 5 season) 2023 RSV Immunization or 60+ Years (1 - [...]
--- OUTSIDE RECORDS SUMMARY | 2024-07-20 09:12 | XMS_ITS | Clinical Summary ---
Author Organization [facility] Address [address] [place] [address] Care Team Providers Care High Scaler Name Role Phone Unavailable Primary Care Provider Unavailabl e Source Comments [facility],non-owned Affiliates and Associated Physician Practices is amultiple site organization consisting of ambulatory clinics and hospital sitesin [place] and [place]. This disclosure is being madepursuant to the Care Everywhere program and may not contain all information available regarding this patient. 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
== END 2024-07-20 09:07 | disposition home or self-care (01) ==
LOC: CHSIMG 09:08
PROVIDERS: PCP Internal Medicine; Visit Provider Nurse Practitioner Family
DX: R05.3 Chronic cough (principal); Z77.090 Contact with and (suspected) exposure to asbestos; Z77.29 Contact with and (suspected) exposure to other hazardous substances; R91.8 Other nonspecific abnormal finding of lung field
CPT/HCPCS: 71250

== ENCOUNTER 2024-10-18 08:02 | Outpatient (CLI) | payer OTHER, SELFPAY ==
--- NOTE | ~2024-10-18 | CT_ITS ---
CT Scan of the Chest without Contrast: Clinical Indication: Pulmonary nodule Technique: Contiguous sections were acquired throughout the chest without intravenous contrast. Dose reduction technique was used on this scan by utilizing automated exposure control and iterative recon struction technique. The dose-length product (DLP) was 133.86 mGy-cm. COMPARISON: 07/20/2024 Findings: There is no evidence of any significant mediastinal, hilar or axillary lymphadenopathy. The mediastin al soft tissues appear normal. There is no evidence of pleural or pericardial effusion. Stable 10 mm nodule in the medial left lower lobe. Images through the upper abdomen reveal no abnormalities. Impression: Stable 10 mm medial left lower lobe pulmonary nodule. Continued follow-up advised to document 2 years of stability. Recommend follow-up CT scan in approximately 6 months. Reviewed, dictated and finalized at [facility]. Impression: Stable 10 mm medial left lower lobe pulmonary nodule. Continued follow-up advis ed to document 2 years of stability. Recommend follow-up CT scan in approximate ly 6 months.
--- OUTSIDE RECORDS SUMMARY | 2024-10-18 08:08 | XMS_ITS | Continuity of Care Document ---
Author Organization [facility] Address [address] [facility] [address] [place] [address] Phone Care Team Providers Care Paralegal Internship Name Role Phone Filipe Elena MD Unavailable [...] Copied on Encounter OFFICE/OUTPA TIENT VISIT EST [facility], [address] [facility] [address], [place], [address], [place] tel:[phone] [facility] Other intervertebr al disc displacement , lumbar regionLumbag o with sciatica, right sideLumbago with sciatica, left sideSpinal stenosis of lumbar regionBody mass index (BMI) 28.0-28.9, adult 0-201 7 Kassy Dent. [address] [place], [place], [id number]. tel:[phone] OFFICE/OUTPA TIENT VISIT [facility], [address] [facility] [address], [place], [address], tel:[phone] [facility] LOW BACK PAIN (chief complaint)B POSTERIOR LEG PAIN (chief complaint)DE NIES NUMBNESS (chief complaint)MR I AT CY (chief complaint)CO EVIOUS CHIROPRACTOR (chief complaint) Lumbago with sciatica, left sideLumbago with sciatica, right sideOther intervertebr al disc displacement , lumbar region 6 Kassy Dent. [address] [facility], [place], [place], [id number]. tel:[phone] Referring Provider: Cody Lin, [address] [place] [address] [address], [place], [place], [facility]. tel:[phone] [facility], [address], [address], tel:[phone] [facility] Right lumbar radiculitisP rimary osteoarthrit is of right kneeCrush injury 6 Duglas Stacey. [address] [facility] [address] [place] [address], [id number]. tel:[phone] Family History Family Member Type Diagnosis Age At Onset Mother Problem (finding) coronary arterioscleros is Mother Problem (finding) osteoporosis Payers Payer name Insurance type Covered democrat ID Authorjina tidenise(s) Medicare E2 OT [id number] Social History Type Description Quantity Date Captured [...]
--- OUTSIDE RECORDS SUMMARY | 2024-10-18 08:08 | XMS_ITS | Clinical Summary ---
Author Organization [facility] Address [address] [place] [address] Care Team Providers Care Blanking Machine Operator Name Role Phone Unavailable Primary Care Provider Unavailabl e Source Comments [facility]non-owned Affiliates and Associated Physician Practices is amultiple site organization consisting of ambulatory clinics and hospital sitesin [place], [place], [place] and [place]. This disclosure is being madepursuant to the Care Everywhere program and may not contain all information available regarding this patient. Last updated 17.[facility] 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
--- OUTSIDE RECORDS SUMMARY | 2024-10-18 08:08 | XMS_ITS | Continuity of Care Document ---
Author Organization [facility] Address [address] [facility] [address] [address] Phone Care Team Providers Care Swimming Pool Plasterer Helper Name Role Phone Cary Michael DO Unavailable Unavailable Medications Medication Instructions Dosage Effective Dates (start - stop) Status Comments Naprosyn 500 mg Tab take 1 tablet (500MG ) by oral route 2 times every day with food 500 MG - Active Procedures Procedure Date Office[facility]patient [facility] Supplemental Report Office/outpatient visit,[facility] 2010 X-ray exam of ankle, complete 1 Advance Directives Directive Yes / No Effective Date File Name No Information Encounters Encounter Description Practice Location Reason(s) For Visit Diagnoses Date Provider Providers Copied on Encounter Office[facility]pat [facility], [address] [place] [address], [id number], tel:[phone] [facility] [employer] [facility] SPRAIN OF ANKLE DELTOIDSPRAIN OF ANKLE NEC 1 Fernanda Townsend. [address] [place] [address], [address], [id number] , [place]. tel: [phone] Office/outpat ient visit,[facility] [facility], [address] [place] [address], [id number], [place] tel:[phone] [facility] [facility] SPRAIN OF ANKLE NECJOINT PAIN-ANKLE 1 Fernanda Townsend. [address] [place] [address], [address], [id number] , [place]. tel:[phone] Family History Family Member Type Diagnosis Age At Onset No Information Payers Payer name Insurance type Covered alliance party ID Authorjina armidadenise(s) [employer] [facility] [id number] Social History Type Description Quantity Date Captured [...]
--- OUTSIDE RECORDS SUMMARY | 2024-10-18 08:08 | XMS_ITS | Referral Summary ---
Author Organization [facility] [address] [facility] Address [address] [place] [address] Care Team Providers Care Electronic Scanner Operator Name Role Phone Anthony Patrick MD Primary Care Provider [phone] Allergies Active Allergy Reactions Criticality Noted Date [...] x 4 days 6 tablet 4 Active budesonide-form oteroL (SYMBICORT) 80-4.5 mcg/actuation inhaler TAKE 2 PUFFS BY MOUTH TWICE A DAY IN THE MORNING AND IN THE EVENING 5 Active Active Problems Problem Noted Date Diagnosed Date Chronic post-traumatic headache, not intractable 11/04/2022 Social History Tobacco Use Types Packs/Day Years Used Date Smoking Tobacco: Never Smokeless Tobacco: Never Tobacco Cessation:Counseling Given: Not Answered Sex and Gender Information Value Date Recorded Sex Assigned at Not on file 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 Gender Identity Not on file Sexual Orientation [...] 6:57 PM CDT Height 177.8 cm (5' 10) 06/14/2024 6:57 PM CDT Body Mass Index 30.42 06/14/2024 6:57 PM CDT Plan of Treatment Not on file Insurance [facility] CHOICE [facility] H[facility]PPO Address: [place] [address] [facility]O Address: [place] [address] [facility] CHOICE PL[employer] [facility] HMO/PPO Address: [address] [place] [address] Care Teams Electronic Scanner Operator Relationship Specialty Start Date End Date Anthony Patrick MD PCP - General Internal Medicine 04/27/20
--- OUTSIDE RECORDS SUMMARY | 2024-10-18 08:08 | XMS_ITS | Data Portability ---
Author Organization [place] [facility], Main Office Address [address] [facility] [address] [place] [address] Care Team Providers Care Financial Services Director Name Role Phone AMADA MAN Primary Care Provider Assessment No assessment recorded. Plan of Treatment [...] today's visit I spent a total of 50 minutes [id number] with the patient and over 50% of [...] 5 treatments. Not available 09/14/2017 16:15:36 10/17/2017 [id number] Patient counsele d to F/U immediately if [...] Name and Address Organization Details Recorded Time Carolyne easily reducible 770185430 Active 2017 Tx #1: 09/05/17 1.2 x 9 LL Tx #2: 8 1.2 x 10 RP Tx #3: 8 1.1 x 4 RA Tx #4: Ciara Mina MD [address] [place] [address],[address], [place], [address], [facility] 8 09:32:56 Thrombosed external hemorrhoids 79740098 Active 2017 Ciara Mina MD [address] [place] [address],[address], [place], [address], [facility] [place] 8 13:27:48 Irritable bowel syndrome with diarrhea 172527596 Active 2017 Ciara Mnia MD [address] [place] [address],[address], [place], [address], [facility] [place] 8 13:28:50 Problem Notes None recorded. Procedures Surgical History Date Name Laterality Status Provider Name and Address Organization Details Recorded Time 8 IRC completed Ciara Mina MD [address] [place] [address],[address], [place], [address], [facility] 10/17/2017 09:36:01 8 [place] [address] [place] [address],[address], [place], [address], [facility] 09/18/2017 22:26:24 8 IRC completed Ciara Mina MD [address] [place] [address],[address], [place], [address] [place] [address] [facility] 09/05/2017 13:26:54 8 Colonoscopy completed Ciara Mina MD [address] [place] [address],[address], [place], [address] [place] [address] [facility] 09/05/2017 13:17:47 Hernia Repair completed Giana Mejía [facility] [place] 09/05/2017 09:18:46 Imaging Results None recorded. Procedure [...] Heart rate Respiratory rate Body temperature Systolic And Diastolic Provider Name and Address Organization Details Last Updated DateTime 8 175.26 cm 29.5 kg/m2 80831.4 7 g 96 /min 12 /min 98 [degF] 130/94 mm[Hg] Giana Mejía [facility] 8 09:33:45 Date Recorded Body height Provider Name an d Address Organization Details Last Updated DateTime 09/14/2017 175.26 cm Jeannie Cardoza [facility] 09/14/2017 15:49:55 Date Recorded Body height Provider Name an d Address Organization Details Last Updated DateTime 10/17/2017 175.26 cm Giana Mejía [facility] 10/17/2017 08:57:53 Social History Question Answer Notes LastModified by Organizat ion Details LastModified Time Tobacco Smoking Status Never Smoker Gianagarcia Mejía [facility] 09/05/2017 09:17:51 Alcohol Use Yes Information n ot available 09/05/2017 Alcohol Amount Occasional Informatio n not available 09/05/2017 Caffeine Use Yes Information not available 09/05/2017 Caffeine Type Soda Information not available 09/05/2017 Caffeine Amount 1 Daily Information not available 09/05/2017 What Was The Date Of Your Most Recent Tobacco Screening? 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 Family History Relationship [...] Fibrillation N Kidney Stones N Hyperthyroidism N COPD N Depression N Accidental Bowel Leakage N Headaches/Migraines Y Anxiety Disorder Y Diverticulosis N Cancer N Stroke N Head Trauma N Crohn's Disease N HIV/AIDS N Irritable Bowel Syndrome Y Kidney Disease N Celiac Disease N Anal/Rectal Trauma/Injury N Cataracts N Bleeding Disorder N Asthma N Pulmonary Embolism N Hernia N Hypothyroidism N Glaucoma N Deep Vein Thrombosis N Cardiac Dysrhythmia N MRSA/VRE Exposure N Genital Warts N Liver Disease/Hepatitis N High Cholesterol N Autoimmune Disease N Anemia Y Arthritis/Gout N Diabetes N Seizures/Epilepsy N Diverticulitis N Reflux/GERD Y Ulcerative Colitis N Sleep Apnea N Aneurysm N Heart Disease N Hypertension N Colon/Rectal Polyps N Past Encounters Encounter ID Performer Location Encounter Start Date Encounter Closed Date Diagnosis/Indication Diagnosis SNOMED-CT Code Diagnosis ICD10 Code Diagnosis Note [id number] Ciara Mina MD Main Office [address] [address] 09/05/2017 09:11:38 09/05/2017 10:49:20 Pile easily reducible 741154097 K64.1 Stage 2 internal hemorrhoid s/external hemorrhoid s: I do think he would benefit from infrared coagulatio n. Full informed consent for treatment was given including risks/bene fits and alternativ es (including watchful waiting and not doing any procedures ). He wanted to proceed with treatment. His first treatment was done today on the left lateral internal hemorrhoid . Thrombosed external hemorrhoids 27564686 K64.5 He does not require lancing or excision. He understand s that IRC will help the area resolve quicker than it would on its own but it will not make the clot go away completely . Irritable bowel syndrome with diarrhea 747581904 K58.0 He is not really concerned about the multiple BM's. I encouraged him to eat a high fiber diet [id number] Ciara Mina MD Main Office [address] [facility] [address] [place] [address] 09/14/2017 15:47:39 09/14/2017 16:18:51 Pile easily reducible 783402758 K64.1 Stage 2 - 3 internal hemorrhoid s/external hemorrhoid s: He is doing well with infrared coagulatio n treatment. His 2nd treatment was done today on the RP. Thrombosed external hemorrhoids 49154142 K64.5 This is completely resolved. Irritable bowel syndrome with diarrhea 238207788 K58.0 This is much better with treating his hemorrhoid s. [id number] Ciara Mina MD Main Office [address] [place] [place] [address] 10/17/2017 08:56:38 10/17/2017 09:20:35 Pile easily reducible 432117097 K64.1 Stage 2 internal hemorrhoid s/external hemorrhoid s: He is doing well with infrared coagulatio n treatment. His 3rd treatment was done today on the right anterior internal hemorrhoid . Irritable bowel syndrome with diarrhea 939895413 K58.0 This is much better with treating his hemorrhoid s. External hemorrhoids 239 [address] K64.4 Improved with IRC. Health Concerns Section Related Observation LastModified by Organization Detai ls LastModified Time None Recorded Concern Status LastModified by Organization Details LastModified Time None Recorded Advance Directives Directive None Recorded Payers Insurance Date Sequence Insurance Name Policy Number Policy Wolfe Covered Member ID Wolfe Member ID Guarantor Name 09/16/2023 1 [facility] [id number] Iftikhar Mark Arreaga [id number] Iftikhar Arreaga 09/16/2023 2 [place] Iftikhar Mark Arreaga [id number] Iftikhar L Whitley Notes Date Note Type Note Provider Name and Address Organization Details Recorded Time 09/05/2017 text/html This is an extre mariana pleasant 57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 He does not feel this is diarrhea - it is not loose/urgent. It is just his normal. Ciara Mina MD [address] [place] [address],[address], [place], [address], [facility] 09/05/2017 13:33:05 09/14/2017 text/html No problem with [...] [place] [address] [place] [address],[address], [place], [address], [facility] 09/18/2017 22:30:14 10/17/2017 text/html Follow up: See [...] been soft and daily. Ciara Mina MD [address] [facility],[address], [place], [address], [facility] 10/17/2017 09:37:02
--- OUTSIDE RECORDS SUMMARY | 2024-10-18 08:08 | XMS_ITS | Clinical Summary ---
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
--- OUTSIDE RECORDS SUMMARY | 2024-10-18 08:08 | XMS_ITS | Clinical Summary ---
Author Organization [facility] Address [address] [place] [address] Care Team Providers Care Christian Science Practitioner Name Role Phone Unavailable Primary Care Provider [...]
== END 2024-10-18 08:03 | disposition home or self-care (01) ==
PROVIDERS: PCP Internal Medicine; Visit Provider Nurse Practitioner Family
DX: R91.1 Solitary pulmonary nodule (principal)
CPT/HCPCS: 71250

== ENCOUNTER 2024-12-12 14:07 | Outpatient (CLI) | payer OTHER, SELFPAY ==
--- NOTE | ~2024-12-12 | MR_ITS ---
EXAMINATION: MR cervical spine wo con DATE: 12/12/2024 14:42 INDICATION: Cervical radicular pain. TECHNIQUE: Magnetic resonance imaging (MRI) of the cervical spine was performed without intravenous contrast. COMPARISON: Cervical spine MRI 01/12/2024 FINDINGS: There is mild kyphosis of cervical spine. There is 2 mm anterolisthesis of C3 on C4. Vertebral body heights are normal. There is moderately decreased disc height at C4-C5. The spinal cord signal intensity is normal. The following disc levels are specifically discussed: C2-C3: The disc does not extend beyond the endplate margin. There is mild left uncovertebral joint osteoarthritis. There is severe bilateral facet joint osteoarthritis. There is mild left neural foraminal stenosis. There is no central canal stenosis. C3-C4: The disc does not extend beyond the endplate margin. There is mild right and severe left uncovertebral joint osteoarthritis. There is mild right and severe left facet joint osteoarthritis. There is moderate left neural foraminal stenosis. There is no central canal stenosis. C4-C5: The disc is bulging. There is severe bilateral uncovertebral joint osteoarthritis. There is moderate bilateral facet joint osteoarthritis. There is moderate bilateral neural foraminal stenosis. There is mild central canal stenosis. C5-C6: The disc does not extend beyond the endplate margin. There is mild bilateral uncovertebral joint osteoarthritis. There is mild right and severe left facet joint osteoarthritis. There is no neural foraminal stenosis. There is no central canal stenosis. C6-C7: There is a right central extrusion. There is moderate right and mild left uncovertebral joint osteoarthritis. There is severe bilateral facet joint osteoarthritis. There is mild right neural foraminal stenosis. There is mild central canal stenosis. C7-T1: The disc does not extend beyond the endplate margin. There is no uncovertebral joint osteoarthritis. There is severe bilateral facet joint osteoarthritis. There is mild bilateral neural foraminal stenosis. There is no central canal stenosis. IMPRESSION: 1. Moderate cervical spondylosis, stable from 01/12/2024. Reviewed, dictated and finalized at location E.
== END 2024-12-12 14:08 | disposition home or self-care (01) ==
PROVIDERS: PCP Internal Medicine; Visit Provider Physician Assistant
DX: M50.90 Cervical disc disorder, unspecified, unspecified cervical region (principal); M47.22 Other spondylosis with radiculopathy, cervical region
CPT/HCPCS: 72141

== ENCOUNTER 2025-01-02 16:00 | Outpatient (RCR) | payer OTHER, SELFPAY ==
--- NOTE | 2024-11-05 17:56 | OPREHPOC ---
Outpatient Therapy Plan of Care This is a Multidisciplinary Plan of Care that may contain components documented by all disciplines (PT, OT, and ST.) PT Problem 1 PT Problem #1 Knowledge Deficit PT Goal 1 Goal / Goal Update Independent and compliant with HEP. Target Visit 2 PT Problem 2 PT Problem #2 Pain PT Goal 1 Goal / Goal Update Pt to report reduction of burning sensation on L side of neck. Target Visit 12 PT Problem 3 PT Problem #3 Impaired Range of Motion PT Goal 1 Goal / Goal Update Pt to improve active cervical extension to 45 deg or better. Pt to improve bilat cervical rotation AROM to 70 deg without pain. Target Visit 12 PT Problem 4 PT Problem #4 Impaired Strength PT Goal 1 Goal / Goal Update Pt to improve cervical mm strength to 5/5 grossly and without pain. Target Visit 12 PT Problem 5 PT Problem #5 Impaired Functional Mobility PT Goal 1 Goal / Goal Update Pt to report 20% reduction in perceived disability on NDI. Pt to report being awoken 3 times or less during the night while sleeping, indicating improved sleep quality. Target Visit 12
--- NOTE | 2024-11-05 17:56 | PTOPEVAL1 ---
Assessment and note entered by Lorena Parmar, PT Evaluation Information Assessment Status Evaluation Diagnosis Neck pain, DJD ICD-10 Condition Codes (PT) Cervicalgia M54.2 Subjective Information Pt reports his neck pain has been going on for a long time. 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 He notes a burning sensation in the back of his head on the L side that is always present, as well as feelings of tightness in the neck and shoulder. He also notes his L arm is weak overall and prevents him from fishing. He also notes when he puts pressure on his elbow it causes pain up in his neck. 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 He notes occasional headaches with his neck pain and difficulty focusing when his pain gets bad. He reports he had a couple steroid shots (states they injected them in his buttock region) two weeks ago and another last week, reports minimal benefit from these shots. He's been going to the chiropractor 2x per week and notes some benefit. Also reports significant sleep interference. Cervical spine x-ray and MRI from 2023 demonstrate spondylosis and pt enters clinic with photo copies of most recent cervical spine x-ray from April 2024. Reported Pain Level Pain Score 7: Self Report Assessment PT Clinical Summary Mr. Arreaga is a 64 yo male presenting to skilled PT evaluation for chronic L sided neck pain. He demonstrates impairments in cervical extension and rotation AROM as well as weakness in cervical extension, L lateral flexion and R rotation with pain reproduced with all these movements. His symptoms are reproduced with Spurling's test to the L indicating cervical radiculopathy in addition to cervical x-ray and MRI indicating spondylosis. He will benefit from skilled PT to reduce pain, improve ROM and strength to improve sleep quality and work capacity. Plan of Care Interventions Electrical Stimulation,Gait Training,Hot Pack/Cold Pack,Manual Therapy,Mechanical Traction,Neuro Re- education,Patient/Caregiver Education,Therapeutic Activities,Therapeutic Exercise,Self-Care/Home Management Other Interventions TPDN PT Services Indicated Yes Treatment Frequency and 2x/week for 12 visits Duration These treatments will address the objective and functional deficits as defined above. The patient will be advanced safely and appropriately in order for the patient to progress towards his/her prior level of function. Additional exercises will be introduced and as well as a comprehensive home exercise program upon discharge, if needed, ?to ensure carryover of functional gains achieved in the clinic. This treatment plan has been reviewed and agreement upon by the patient.
--- NOTE | 2024-12-06 10:06 | OPREHPOC ---
Outpatient Therapy Plan of Care This is a Multidisciplinary Plan of Care that may contain components documented by all disciplines (PT, OT, and ST.) PT Problem 1 PT Problem #1 Knowledge Deficit PT Goal 1 Goal / Goal Update Independent and compliant with HEP. Target Visit 2 Progress Met PT Problem 2 PT Problem #2 Pain PT Goal 1 Goal / Goal Update Pt to report reduction of burning sensation on L side of neck. Target Visit 12 Progress Met PT Problem 3 PT Problem #3 Impaired Range of Motion PT Goal 1 Goal / Goal Update Pt to improve active cervical extension to 45 deg or better. Pt to improve bilat cervical rotation AROM to 70 deg without pain. Target Visit 12 Progress Partially Met PT Goal 2 Goal / Goal Update Continue PT Problem 4 PT Problem #4 Impaired Strength PT Goal 1 Goal / Goal Update Pt to improve cervical mm strength to 5/5 grossly and without pain. -not assessed Target Visit 12 Progress Not Met PT Goal 2 Goal / Goal Update continue PT Problem 5 PT Problem #5 Impaired Functional Mobility PT Goal 1 Goal / Goal Update Pt to report 20% reduction in perceived disability on NDI. Pt to report being awoken 3 times or less during the night while sleeping, indicating improved sleep quality. Target Visit 12 Progress Not Met PT Goal 2 Goal / Goal Update continue
--- NOTE | 2024-12-06 10:06 | PTOPPROGNS ---
Assessment and note entered by Montserrat Caballero, PT Evaluation Information Assessment Status Progress Diagnosis Neck pain, DJD ICD-10 Condition Codes (PT) Cervicalgia M54.2 Subjective Information Iftikhar reports his neck pain has improved since he started PT. He notes pain went from 9-10/10 to now 6/10. He does continue to have dizziness when his neck feels tight which he is noticing today. He has an appointment later today to see a pain management doctor for the first time. Assessment PT Clinical Summary Iftikhar Arreaga has completed 10 out of 12 skilled PT visits for chronic L sided neck pain. He is reporting overall improvements in his pain since starting PT. He is making progress in ROM and strength as well as posture. He has been getting relief with mechanical traction as well. He will continue to benefit from skilled PT in order to meet goals and improve function. Plan of Care Interventions Hot Pack/Cold Pack,Manual Therapy,Mechanical Traction,Neuro Re-education,Patient/Caregiver Education,Therapeutic Activities,Therapeutic Exercise,Self-Care/Home Management Other Interventions TPDN PT Services Indicated Yes Treatment Frequency and Continue original POC for 2 additional visits Duration These treatments will address the objective and functional deficits as defined above. The patient will be advanced safely and appropriately in order for the patient to progress towards his/her prior level of function. Additional exercises will be introduced and as well as a comprehensive home exercise program upon discharge, if needed, ?to ensure carryover of functional gains achieved in the clinic. This treatment plan has been reviewed and agreement upon by the patient.
--- NOTE | 2024-12-13 18:00 | OPREHPOC ---
Outpatient Therapy Plan of Care This is a Multidisciplinary Plan of Care that may contain components documented by all disciplines (PT, OT, and ST.) PT Problem 1 PT Problem #1 Knowledge Deficit PT Goal 1 Goal / Goal Update Independent and compliant with HEP. Target Visit 2 Progress Met PT Problem 2 PT Problem #2 Pain PT Goal 1 Goal / Goal Update Pt to report reduction of burning sensation on L side of neck. Target Visit 12 Progress Met PT Problem 3 PT Problem #3 Impaired Range of Motion PT Goal 1 Goal / Goal Update Pt to improve active cervical extension to 45 deg or better. -not met Pt to improve bilat cervical rotation AROM to 70 deg without pain. -not met Target Visit 12 Progress Not Met PT Goal 2 Goal / Goal Update Continue Target Visit 18 PT Problem 4 PT Problem #4 Impaired Strength PT Goal 1 Goal / Goal Update Pt to improve cervical mm strength to 5/5 grossly and without pain. Target Visit 12 Progress Met PT Goal 2 Goal / Goal Update continue PT Problem 5 PT Problem #5 Impaired Functional Mobility PT Goal 1 Goal / Goal Update Pt to report 20% reduction in perceived disability on NDI. Pt to report being awoken 3 times or less during the night while sleeping, indicating improved sleep quality. -met Target Visit 12 Progress Partially Met PT Goal 2 Goal / Goal Update Continue Target Visit 18
--- NOTE | 2024-12-13 18:00 | PTOPPROG ---
Assessment and note entered by Lorena Parmar, PT Evaluation Information Assessment Status Progress Diagnosis Neck pain, DJD ICD-10 Condition Codes (PT) Cervicalgia M54.2 Onset 11/02/2024 Subjective Information Iftikhar reports feeling like PT has been helping. He no longer experiences burning in his neck and sleeps better with less neck pain. Assessment PT Clinical Summary Mr. Arreaga has attended 12 skilled PT visits for neck pain. Since beginning therapy he has made good progress in his cervical mm strength and he no longer experiences a burning sensation in his neck, but he continues to demonstrate deficits in cervical AROM and moderate mm tightness of the cervical paraspinals and upper trapezius bilaterally. He will benefit from continued skilled PT intervention to address these continued deficits to improve his mobility and flexibility and allow him to perform functional tasks around his house as well as driving and yard work with less pain. Plan of Care Interventions Hot Pack/Cold Pack,Manual Therapy,Mechanical Traction,Neuro Re-education,Patient/Caregiver Education,Therapeutic Activities,Therapeutic Exercise,Self-Care/Home Management Other Interventions TPDN PT Services Indicated Yes Treatment Frequency and 1x/week for 6 additional visits Duration These treatments will address the objective and functional deficits as defined above. The patient will be advanced safely and appropriately in order for the patient to progress towards his/her prior level of function. Additional exercises will be introduced and as well as a comprehensive home exercise program upon discharge, if needed, ?to ensure carryover of functional gains achieved in the clinic. This treatment plan has been reviewed and agreement upon by the patient.
--- NOTE | 2025-01-23 16:55 | OPREHPOC ---
Outpatient Therapy Plan of Care This is a Multidisciplinary Plan of Care that may contain components documented by all disciplines (PT, OT, and ST.) PT Problem 1 PT Problem #1 Knowledge Deficit PT Goal 1 Goal / Goal Update Independent and compliant with HEP. Target Visit 2 Progress Met PT Problem 2 PT Problem #2 Pain PT Goal 1 Goal / Goal Update Pt to report reduction of burning sensation on L side of neck. Target Visit 12 Progress Met PT Problem 3 PT Problem #3 Impaired Range of Motion PT Goal 1 Goal / Goal Update Pt to improve active cervical extension to 45 deg or better. -met Pt to improve bilat cervical rotation AROM to 70 deg without pain. -met Target Visit 12 Progress Met PT Goal 2 Goal / Goal Update Continue Target Visit 18 Progress Met PT Problem 4 PT Problem #4 Impaired Strength PT Goal 1 Goal / Goal Update Pt to improve cervical mm strength to 5/5 grossly and without pain. Target Visit 12 Progress Met PT Goal 2 Goal / Goal Update continue PT Problem 5 PT Problem #5 Impaired Functional Mobility PT Goal 1 Goal / Goal Update Pt to report 20% reduction in perceived disability on NDI. -met Pt to report being awoken 3 times or less during the night while sleeping, indicating improved sleep quality. -met Target Visit 12 Progress Met PT Goal 2 Goal / Goal Update Continue Target Visit 18 Progress Met
--- NOTE | 2025-01-23 16:55 | PTOPDC ---
Assessment and note entered by Lorena Parmar, PT Evaluation Information Assessment Status Discharge Diagnosis Neck pain, DJD ICD-10 Condition Codes (PT) Cervicalgia M54.2 Onset 11/02/2024 Subjective Information Michael reports feeling like his neck has improved greatly with PT. He is supposed to be getting his home traction machine this week and thinks it will continue to help a lot. Reported Pain Level Pain Score 2: Self Report Assessment PT Clinical Summary Mr. Arreaga presents for his 18th skilled PT visit addressing neck pain. Since beginning therapy he has had a significant reduction in his pain and has made good improvements in his cervical AROM and strength. He has met goals addressing these deficits and has been independent in his HEP and is therefore appropriate for discharge from skilled PT this date. Plan of Care PT Services Indicated No
== END 2025-01-23 20:00 | disposition home or self-care (01) ==
LOC: CHSPT 16:00
PROVIDERS: PCP Internal Medicine; Visit Provider Internal Medicine
DX: M54.2 Cervicalgia (principal)
CPT/HCPCS: 97012; 97014; 97110; 97112; 97140; 97161; G0283

== ENCOUNTER 2025-01-04 07:12 | Outpatient (CLI) | payer OTHER, MEDICARE, SELFPAY ==
--- OUTSIDE RECORDS SUMMARY | 2016-05-03 10:45 | XMS_ITS | Continuity of Care Document ---
Author Organization [facility] Address [address] [facility] [address] [place] [address] Phone Care Team Providers Care Maintenance Job Titles Name Role Phone Filiep Elena MD Unavailable Unavailable Allergies, Adverse Reactions, Alerts Substance Reaction Status Criticality No Known Allergies Active No Inform ation Medications Medication Instructions Dosage Effective Dates (start - stop) Status Comments baclofen 10 mg tablet take 1 tablet by oral route 3 times every day - Active nortriptyline 10 mg capsule take 1 capsule by oral route every day at bedtime 10 MG - Active baclofen 10 mg tablet take 1 tablet by oral route 3 times every day - No Longer Active NORTRIPTYLINE HCL (unknown strength) Not Available - No Longer Active PREDNISONE INTENSOL (unknown strength) Not Available - No Longer Active Procedures Procedure Date OFFICE/OUTPATIENT VISIT EST Rx certified EHR OFFICE/OUTPATIENT VISIT NEW Rx certified EHR Advance Directives Directive Yes / No Effective Date File Name No Information Encounters Encounter Description Practice Location Reason(s) For Visit Diagnoses Date Provider Providers Copied on Encounter OFFICE/OUTPA TIENT VISIT EST [facility], [address], [place], [address], [place] tel:[phone] [facility] Other intervertebr al disc displacement , lumbar regionLumbag o with sciatica, right sideLumbago with sciatica, left sideSpinal stenosis of lumbar regionBody mass index (BMI) 28.0-28.9, adult 0-201 7 Kassy Dent. [address] [place], [place], [id number]. tel:[phone] OFFICE/OUTPA TIENT VISIT [facility], [address] [facility] [address], [place], [address], tel:[phone] [facility] LOW BACK PAIN (chief complaint)B POSTERIOR LEG PAIN (chief complaint)DE NIES NUMBNESS (chief complaint)MR I AT CY (chief complaint)TX EVIOUS CHIROPRACTOR (chief complaint) Lumbago with sciatica, left sideLumbago with sciatica, right sideOther intervertebr al disc displacement , lumbar region 6 Kassy Dent. [address] [facility], [place], [place], [id number]. tel:[phone] Referring Provider: Cody Lin, [address] [place] [address] [address], [place], [place], [facility]. tel:[phone] [facility], [address], [address], tel:[phone] [facility] Right lumbar radiculitisP rimary osteoarthrit is of right kneeCrush injury 6 Duglas Stacey. [address] [facility] [address] [place] [address], [id number]. tel:[phone] Family History Family Member Type Diagnosis Age At Onset Mother Problem (finding) coronary arterioscleros is Mother Problem (finding) osteoporosis Payers Payer name Insurance type Covered alliance party ID Authorjina tidenise(s) [place] E2 [place] [id number] Social History Type Description Quantity Date Captured Comments Alcohol Use Details Unknown Caffeine Use Details Unknown Tobacco Use Status Never smoked tobacco 2016 Smoking Status Never smoker Non-Smoking Tobacco Use Details : No Details Available : No Details Available Sex Male Vital Signs Date / Time: Height Weight BMI Pulse Rate Blood Pressure Temperature Respiratory Rate Body Surface Area Head Circumference Head Circ. Percentile Wt./Stephan. Percentile BMI percentile Pulse Ox Inhaled Ox 6:23 AM 69.00 in 87.543 kg (193.00 lbs) 28.5 0 kg/m eter (2) 134/99 mm[Hg] Chief Complaint And Reason For Visit No Information Reason For Referral Reason For Referral No Information Plan Of Treatment Date Type Action Status Referral Ordered: MRI SPI CANAL&CNTS LMBR C-MATRL Appointment date/timeframe: 11/24/2015 ordered Referral Ordered: RADEX KNE COMPL 4/MORE VIEWS RT ordered Referral Ordered: RADEX SPI LUMBOSAC MINIMUM 4 VIEWS ordered Nutrition Recommendation Nutrition / feed ing management completed History Of Present Illness Encounter Date Complaint History Of Prese nt Illness LOW BACK PAIN B POSTERIOR LEG PAIN DENIES NUMBNESS MRI AT PREVIOUS CHIROPRACTOR Functional Status Date Functional Assessmen t No Information Instructions Date Instruction Additional Infor mation Giving encouragement to exercise Related to Body mass index (BMI) 28.0-28.9, adult Assessments Type Assessment Date assessment Other intervertebral disc displa cement, lumbar region assessment Lumbago with sciatica, right shonda e assessment Lumbago with sciatica, left side assessment Spinal stenosis of lumbar region assessment Body mass index (BMI) 28.0-28.9, adult Patient Care Teams Name Effective Dates (start - stop) Status Members No Information
--- OUTSIDE RECORDS SUMMARY | 2025-01-04 07:17 | XMS_ITS | Clinical Summary ---
Author Organization [facility] Address [address] [place] [address] Care Team Providers Care Blast Hole Driller Name Role Phone Unavailable Primary Care Provider [...] COVID-19 Vaccine ( - 2023-2 5 season) 2024 RSV Immunization or 60+ Years (1 - [...]
--- OUTSIDE RECORDS SUMMARY | 2025-01-04 07:18 | XMS_ITS | Clinical Summary ---
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 Gender Identity Not on file Sexual Orientation [...] 2009 Well Visit 65+ 01/15/2024 Influenza Vaccine (#1) 2024 DTaP/Tdap/Td Vaccine (3 - Td or Tdap) 10/11/2026 10/11/2016, 09/24/2009, 09/24/2009 Insurance [facility] Address: [place] [address] [facility] Address: [address] [address] [place] [address] [facility] [employer] [employer]O Address: [address] [address] [place] [address] Care Teams Clinical Rehabilitation Specialist Relationship Specialty Start Date End Date Anthony Patrick MD PCP - General Internal Medicine 04/27/20
--- OUTSIDE RECORDS SUMMARY | 2025-01-04 07:18 | XMS_ITS | Data Portability ---
Author Organization [place] [facility], Main Office Address [address] [place] [address] Care Team Providers Care Sieve Repairer Name Role Phone AMADA MAN Primary Care [...] I spent a total of 50 minutes [id number] with the patient and over 50% of [...] 5 treatments. Not available 09/14/2017 16:15:36 10/17/2017 3165 Patient counsele d to F/U immediately if [...] Organization Details Recorded Time Carolyne easily reducible [id number] Active 2017 Tx #1: 09/05/17 1.2 x 9 LL Tx #2: 8 1.2 x 10 RP Tx #3: 8 1.1 x 4 RA Tx #4: Ciara Mina MD [address] [place] [address],[address], [place], [address], [facility] 8 09:32:56 Thrombosed external hemorrhoids 29229391 Active 2017 Ciara Mina MD [address] [place] [address],[address], [place], [address], [facility] [place] 8 13:27:48 Irritable bowel syndrome with diarrhea 102896152 Active 2017 Ciara Mina MD [address] [place] [address],[address], [place], [address], [facility] [place] 8 13:28:50 Problem Notes None recorded. Procedures Surgical History Date Name Laterality Status Provider Name and Address Organization Details Recorded Time 8 IRC completed Ciara Mina MD [address] [place] [address],[address], [place], [address], [facility] 10/17/2017 09:36:01 8 [place] [address] [place] [address],[address], [place], [address], [facility] 09/18/2017 22:26:24 8 IRC completed Ciara Mina MD [address] [place] [address],[address], [place], [address] [place] [address] [facility] 09/05/2017 13:26:54 8 Colonoscopy completed Ciara Mina MD [address] [place] [address],[address], [place], [address] [place] [address] [facility] 09/05/2017 13:17:47 Hernia Repair completed Giana Mejía [facility] [place] 09/05/2017 09:18:46 Imaging Results None recorded. Procedure [...] Updated DateTime 8 175.26 cm 29.5 kg/m2 28958.4 7 g 96 /min 12 /min 98 [degF] 130/94 mm[Hg] Giana Mejía [facility] 8 09:33:45 Date Recorded Body height Provider Name an d Address Organization Details Last Updated DateTime 09/14/2017 175.26 cm Jeannie Cardoza [facility] 09/14/2017 15:49:55 Date Recorded Body height Provider Name an d Address Organization Details Last Updated DateTime 10/17/2017 175.26 cm Giana Mejía [facility] 10/17/2017 08:57:53 Social History Question Answer Notes LastModified by Organizat ion Details LastModified Time Tobacco Smoking Status Never Smoker Gianagarcia Mejía [facility] 09/05/2017 09:17:51 Alcohol Use Yes Information n [...] Organization Details LastModified Time Paternal Grandmother Malignant neoplasm of colon 95 95 Not available 2017 [...] Diagnosis SNOMED-CT Code Diagnosis ICD10 Code Diagnosis IMO Codes Diagnosis Note 2990 Ciara Mina MD Main Office [address] [place] [address] 09/05/2017 09:11:38 09/05/2017 10:49:20 Pile easily reducible 908378035 K64.1 Stage 2 internal hemorrhoid s/external hemorrhoid s: I do think he would benefit from infrared coagulatio n. Full informed consent for treatment was given including risks/bene fits and alternativ es (including watchful waiting and not doing any procedures ). He wanted to proceed with treatment. His first treatment was done today on the left lateral internal hemorrhoid . Thrombosed external hemorrhoids 48171813 K64.5 He does not require lancing or excision. He understand s that IRC will help the area resolve quicker than it would on its own but it will not make the clot go away completely . Irritable bowel syndrome with diarrhea 281308221 K58.0 He is not really concerned about the multiple BM's. I encouraged him to eat a high fiber diet 3069 Ciara Mina MD Main Office [address] [place] [address] 09/14/2017 15:47:39 09/14/2017 16:18:51 Pile easily reducible 488871649 K64.1 Stage 2 - 3 internal hemorrhoid s/external hemorrhoid s: He is doing well with infrared coagulatio n treatment. His 2nd treatment was done today on the RP. Thrombosed external hemorrhoids 68551502 K64.5 This is completely resolved. Irritable bowel syndrome with diarrhea 113668372 K58.0 This is much better with treating his hemorrhoid s. 3358 Ciara Mina MD Main Office [address] [place] [address] 10/17/2017 08:56:38 10/17/2017 09:20:35 Pile easily reducible 636897934 K64.1 Stage 2 internal hemorrhoid s/external hemorrhoid s: He is doing well with infrared coagulatio n treatment. His 3rd treatment was done today on the right anterior internal hemorrhoid . Irritable bowel syndrome with diarrhea 969648141 K58.0 This is much better with treating his hemorrhoid s. External hemorrhoids 239 [address] K64.4 Improved with IRC. Health Concerns Section Related Observation LastModified by Organization Detai ls LastModified Time None Recorded Concern Status LastModified by Organization Details LastModified Time None Recorded Advance Directives Directive None Recorded Payers Insurance Date Sequence Insurance Name Policy Number Policy Wolfe Covered Member ID Wolfe Member ID Guarantor Name 09/16/2023 1 [facility] [id number] Iftikhar Arreaga [id number] Iftikhar Arreaga 09/16/2023 2 MEDICARE [place]: [place] Iftikhar L Whitley [id number] Iftikhar L Whitley Notes Date Note Type Note Provider Name and Address Organization Details Recorded Time 09/05/2017 text/html ROS as noted in the HPI 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 Ciara Mina MD [address] [place] [address],[address], [place], [address], [facility] 09/05/2017 13:33:05 09/14/2017 text/html No problem with [...] not eating any differently. Ciara Mina MD [address] [place] [address],[address], [place], [address], [facility] 09/18/2017 22:30:14 10/17/2017 text/html Follow up: See [...] BM's have been soft and daily. Ciara iMna MD [address], [place], [address], [facility] 10/17/2017 09:37:02
--- OUTSIDE RECORDS SUMMARY | 2025-01-04 07:18 | XMS_ITS | Clinical Summary ---
Author Organization [facility] Address [address] [place] [address] Care Team Providers Care Head Tennis Coach Name Role Phone Unavailable Primary Care Provider Unavailabl e Source Comments [facility] [employer],non-owned Affiliates and Associated Physician Practices is amultiple site organization consisting of ambulatory clinics and hospital sitesin [place], [place], [place] and [place]. This disclosure is being madepursuant to the Care Everywhere program and may not contain all information available regarding this patient. 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
[2025-01-04 07:27] LABS: Hematocrit 44.1 % (37.0-46.0); Hemoglobin 14.6 g/dL (12.4-15.3); Mean Corpuscular HGB Conc 33.1 g/dL (32-36); Mean Corpuscular Hemoglobin 31.5 pg (27.0-31.0); Mean Corpuscular Volume 95.0 fL (78.0-102.0); Platelet Count Result 288 K/mm3 (150-420); Red Blood Count 4.64 M/mm3 (4.70-6.10); White Blood Count 7.0 K/mm3 (4.8-10.8)
[2025-01-04 07:28] LABS: Add Urine Microscopic? NO; Appearance Urine Clear (Clear); Glucose Urine UA Negative (Negative); Leukocyte Esterase Ur Negative (Negative); Nitrate Urine Negative (Negative); Specific Grav Ur 1.015 (1.010-1.020)
[2025-01-04 08:38] LABS: Alanine Aminotransferase 30 U/L (6-50); Albumin Level 4.6 g/dL (3.5-5.1); Alkaline Phosphatase 83 U/L (38-126); Anion Gap 10 mmol/L (4-12); Aspartate Amino Transferase 25 U/L (17-59); Bilirubin,Total 1.2 mg/dL (0.2-1.3); Blood Urea Nitrogen 22 mg/dL (9-20); Calcium 9.7 mg/dL (8.4-10.2); Carbon Dioxide 27 mmol/L (22-30); Chloride 104 mmol/L (98-107); Cholesterol 172 mg/dL (0-200); Estimated Glomerular Filt Rate > 60; Glucose 108 mg/dL (65-110); HDL Direct 43 mg/dL; Osmolality Calculated 296 mOsm/kg (285-295); Potassium 4.7 mmol/L (3.4-5.0); Sodium 141 mmol/L (137-145); Total Protein 7.9 g/dL (6.3-8.2); Triglycerides 154 mg/dL (<150)
[2025-01-04 08:55] LABS: CRP < 0.5 mg/dL (<1.0)
[2025-01-04 09:06] LABS: Prostate Specific Antigen 2.1 ng/mL (< OR = 4.0); Thyroid Stimulating Hormone 2.060 uIU/mL (0.465-4.680)
== END 2025-01-04 07:13 | disposition home or self-care (01) ==
LOC: CHSLAB 07:14
PROVIDERS: PCP Internal Medicine; Visit Provider Internal Medicine Cardiovascular Disease
DX: Z00.00 Encounter for general adult medical examination without abnormal findings (principal); E78.5 Hyperlipidemia, unspecified; R51.9 Headache, unspecified
CPT/HCPCS: 36415; 80053; 80061; 81003; 84153; 84443; 85027; 86140; G0103

== ENCOUNTER 2025-01-05 15:27 | Emergency (ER) | payer OTHER, SELFPAY ==
--- OUTSIDE RECORDS SUMMARY | 2011-03-17 03:45 | XMS_ITS | Continuity of Care Document ---
Author Organization [facility] Address [address] [facility] [address] [address] Phone Care Team Providers Care Horticulture Professor Name Role Phone Cary Michael DO Unavailable Unavailable Medications Medication Instructions Dosage Effective Dates (start - stop) Status Comments Naprosyn 500 mg Tab take 1 tablet (500MG ) by oral route 2 times every day with food 500 MG - Active Procedures Procedure Date Office/outpatient visit,[facility] 2010 Supplemental Report Office/outpatient visit,[facility] 2010 X-ray exam of ankle, complete 1 Advance Directives Directive Yes / No Effective Date File Name No Information Encounters Encounter Description Practice Location Reason(s) For Visit Diagnoses Date Provider Providers Copied on Encounter Office/outpat ient visit,[facility], [address] [place] [address], [id number], [place] tel:[phone] [facility] SPRAIN OF ANKLE DELTOIDSPRAIN OF ANKLE NEC 1 Fernanda Townsend. [address] [place] [address], [address], [id number] , [place]. tel: [phone] Office/outpat ient visit,[facility], [address] [place] [address], [id number], [place] tel:[phone] [facility] SPRAIN OF ANKLE NECJOINT PAIN-ANKLE 1 Fernanda Townsend. [address] [place] [address], [address], [id number] , [place]. tel:[phone] Family History Family Member Type Diagnosis Age At Onset No Information Payers Payer name Insurance type Covered democrat ID Authorjina armidadenise(s) Accident [employer] [facility] [id number] Social History Type Description Quantity Date Captured Comments Sex Male Smoking Status No Information Chief Complaint And Reason For Visit No Information Reason For Referral Reason For Referral No Information History Of Present Illness Encounter Date Complaint History Of Prese nt Illness No Information Functional Status Date Functional Assessmen t No Information Instructions Date Instruction Additional Infor mation No Information Assessments Type Assessment Date No Information Patient Care Teams Name Effective Dates (start - stop) Status Members No Information
--- OUTSIDE RECORDS SUMMARY | 2011-03-17 03:45 | XMS_ITS | Continuity of Care Document ---
Author Organization [facility] Address [address] [facility] [address] [address] Phone Care Team Providers Care Corporate Claims Examiner Name Role Phone Cary Michael DO Unavailable Unavailable Medications Medication Instructions Dosage Effective Dates (start - stop) Status Comments Naprosyn 500 mg Tab take 1 tablet (500MG ) by oral route 2 times every day with food 500 MG - Active Procedures Procedure Date Office/outpatient visit,[facility] 2010 Supplemental Report Office/outpatient visit,[facility] 2010 X-ray exam of ankle, complete 1 Advance Directives Directive Yes / No Effective Date File Name No Information Encounters Encounter Description Practice Location Reason(s) For Visit Diagnoses Date Provider Providers Copied on Encounter Office/outpat ient visit,[facility], [address] [place] [address], [id number], [place] tel:[phone] [facility] SPRAIN OF ANKLE DELTOIDSPRAIN OF ANKLE NEC 1 Fernanda Townsend. [address] [place] [address], [address], [id number] , [place]. tel: [phone] Office/outpat ient visit,[facility], [address] [place] [address], [id number], [place] tel:[phone] [facility] SPRAIN OF ANKLE NECJOINT PAIN-ANKLE 1 Fernanda Townsend. [address] [place] [address], [address], [id number] , [place]. tel:[phone] Family History Family Member Type Diagnosis Age At Onset No Information Payers Payer name Insurance type Covered democrat ID Authorjina armidadenise(s) Accident [employer] [facility] [id number] Social History Type Description Quantity Date Captured [...]
--- OUTSIDE RECORDS SUMMARY | 2016-05-03 10:45 | XMS_ITS | Continuity of Care Document ---
Author Organization [facility] Address [address] [facility] [address] [place] [address] Phone Care Team Providers Care First Grade Teacher Name Role Phone Filipe Elena MD Unavailable Unavailable Allergies, Adverse Reactions, [...] Copied on Encounter OFFICE/OUTPA TIENT VISIT EST [facility], [address], [place], [address], [place] tel:[phone] [facility] Other intervertebr al disc displacement , lumbar regionLumbag o with sciatica, right sideLumbago with sciatica, left sideSpinal stenosis of lumbar regionBody mass index (BMI) 28.0-28.9, adult 0-201 7 Kassy Dent. [address] [place], [place], [id number]. tel:[phone] OFFICE/OUTPA TIENT VISIT [facility], [address] [facility] [address], [place], [address], tel:[phone] [facility] LOW BACK PAIN (chief complaint)B POSTERIOR LEG PAIN (chief complaint)DE NIES NUMBNESS (chief complaint)MR I AT CY (chief complaint)ME EVIOUS CHIROPRACTOR (chief complaint) Lumbago with sciatica, left sideLumbago with sciatica, right sideOther intervertebr al disc displacement , lumbar region 6 Kassy Dent. [address] [employer], [place], [place], [id number]. tel:[phone] Referring Provider: Cody Lin, [address] [place] [address] [address], [place], [place], [facility]. tel:[phone] [facility], [address], [address], tel:[phone] [facility] Right lumbar radiculitisP rimary osteoarthrit is of right kneeCrush injury 6 Duglas Stacey. [address] [facility] [address] [place] [address], [id number]. tel:[phone] Family History Family Member Type Diagnosis Age At Onset Mother Problem (finding) coronary arterioscleros is Mother Problem (finding) osteoporosis Payers Payer name Insurance type Covered alliance party ID Authorjina tidenise(s) Medicare E2 OT [id number] Social History Type Description Quantity Date Captured [...]
[2025-01-05] VITALS (17 sets, daily range): BP systolic 120–159; BP diastolic 80–101; PULSE 86–95; RESP 16–17; TEMP 36.8; O2SAT 95–99
--- OUTSIDE RECORDS SUMMARY | 2025-01-05 15:29 | XMS_ITS | Clinical Summary ---
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 Gender Identity Not on file Sexual Orientation [...] or Tdap) 10/11/2026 10/11/2016, 09/24/2009, 09/24/2009 Insurance [facility]PPO Address: [place] [address] [facility]/PPO Address: [address] [address] [place] [address] [facility]/PPO Address: [address] [address] [place] [address] Care Teams Physician Coding Specialist Relationship Specialty Start Date End Date Anthony Patrick MD PCP - General Internal Medicine 04/27/20
--- OUTSIDE RECORDS SUMMARY | 2025-01-05 15:29 | XMS_ITS | Clinical Summary ---
Author Organization [facility] Address [address] [place] [address] Care Team Providers Care Direct Marketing Intern Name Role Phone Unavailable Primary Care Provider Unavailabl e Source Comments [facility] [employer],non-owned Affiliates and Associated Physician Practices is amultiple site organization consisting of ambulatory clinics and hospital sitesin [place], [place], [place] and [place]. This disclosure is being madepursuant to the Care Everywhere program and may not contain all information available regarding this patient. 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
--- OUTSIDE RECORDS SUMMARY | 2025-01-05 15:29 | XMS_ITS | Clinical Summary ---
Author Organization [facility] Address [address] [place] [address] Care Team Providers Care Cafeteria Team Leader Name Role Phone Unavailable Primary Care Provider [...]
[2025-01-05 16:01] LABS: Hematocrit 38.9 % (42.0-52.0); Hemoglobin 13.1 g/dL (14.0-18.0); Immature Granulocyte Percent A 0.5 % (0-0.5); Lymphocytes Absolute Auto 1.59 K/mm3 (0.9-3.2); Mean Corpuscular HGB Conc 33.7 g/dl (32-36); Mean Corpuscular Hemoglobin 31.9 pg (26-34); Mean Corpuscular Volume 94.6 fl (80-100); Nucleated Red Blood Cells Absolute Auto 0.000 K/mm3 (0.0-0.012); Nucleated Red Blood Cells Perc 0.0 % (0.0-0.2); Platelet Count Result 249 k/mm3 (150-375); Red Blood Count 4.11 M/mm3 (4.6-6.20); White Blood Count 9.7 K/mm3 (4.5-10.0)
[2025-01-05 16:14] LABS: INR 1.1; Partial Thromboplastin Time 26.1 Seconds (22.3-36.8); Prothrombin Time 14.0 Seconds (11.1-14.7)
[2025-01-05 16:21] LABS: Alanine Aminotransferase 33 U/L (6-50); Albumin Level 4.5 g/dL (3.5-5.1); Alkaline Phosphatase 77 U/L (38-126); Anion Gap 10 mmol/L (4-12); Aspartate Amino Transferase 29 U/L (17-59); Bilirubin,Total 1.0 mg/dL (0.2-1.3); Blood Urea Nitrogen 26 mg/dL (9-20); Calcium 9.5 mg/dL (8.4-10.2); Carbon Dioxide 21 mmol/L (22-30); Chloride 108 mmol/L (98-107); Estimated CRCL calculation 63 ml/min; Estimated Glomerular Filt Rate 60; Glucose 93 mg/dL (65-110); Potassium 3.7 mmol/L (3.4-5.0); Sodium 139 mmol/L (137-145); Total Protein 7.2 g/dL (6.3-8.2)
--- OUTSIDE RECORDS SUMMARY | 2025-01-05 16:43 | XMS_ITS | Clinical Summary ---
Author Organization [facility] Address [address] [place] [address] Care Team Providers Care Design Project Manager Name Role Phone Unavailable Primary Care Provider [...]
--- OUTSIDE RECORDS SUMMARY | 2025-01-05 16:43 | XMS_ITS | Clinical Summary ---
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 Gender Identity Not on file Sexual Orientation [...] or Tdap) 10/11/2026 10/11/2016, 09/24/2009, 09/24/2009 Insurance [facility] CHO[facility] HMO/PPO Address: [place] [address] [facility] HMO/PPO Address: [address] [address] [place] [address] [facility] HMO/PPO Address: [address] [address] [place] [address] Care Teams Motorman/Woman Relationship Specialty Start Date End Date Anthony Patrick MD PCP - General Internal Medicine 04/27/20
--- OUTSIDE RECORDS SUMMARY | 2025-01-05 16:43 | XMS_ITS | Clinical Summary ---
Author Organization [facility] Address [address] [place] [address] Care Team Providers Care Furniture Manager Name Role Phone Unavailable Primary Care Provider Unavailabl e Source Comments [facility] [employer],non-owned Affiliates and Associated Physician Practices is amultiple site organization consisting of ambulatory clinics and hospital sitesin [place], [place], [place] and [place]. This disclosure is being madepursuant to the Care Everywhere program and may not contain all information available regarding this patient. 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
--- NOTE | 2025-01-05 17:03 | ED.GIBLEED ---
HPI - GI Bleed General Chief complaint: GI Bleed Stated complaint: rectal bleeding Time Seen by Provider: 01/05/25 15:39 Source: patient Mode of arrival: ambulatory Limitations: no limitations History of Present Illness HPI Narrative: Patient is a 64 y/o male who presents to the ED with c/o rectal bleeding. Patient reports long history of hemorrhoids. Sees Dr. Mao for this. Reports he noticed an external hemorrhoid develop over the past 1 week. States it was painful. Has been using a steroid cream. Was working today and did some heavy lifting without issue. He noticed some time throughout the day today that the hemorrhoid stops hurting. He went to a gas station and was notified by a bystander that he had blood on his pants. He went to the bathroom and had a bowel movement at that time and noticed a blood clot. Denied the blood being mixed in with the stool. States his stool was brown and otherwise normal in color. Continued to have a small amount of bright red rectal bleeding at home in prompted here for further evaluation. Did have another bowel movement at home, which he states was also normal in color. Denies abdominal pain, dizziness, lightheadedness, nausea, vomiting. Is not on any anticoagulation. Does report history of GI bleed and 2017, but states he was having dizziness and melena at that time. Related Data Home Medications ?Medication ?Instructions ?Recorded ?Confirmed ?Last Taken ?Type losartan 50 mg tablet 50 mg PO DAILY 02/14/23 12/28/24 2 Days Ago History ~06/14/23 verapamil 120 mg 24 hr 120 mg PO DAILY 02/14/23 12/28/24 2 Days Ago History capsule,extended release ~06/14/23 albuterol sulfate 90 mcg/actuation 2 inh inhalation Q4-6H PRN 07/11/24 12/28/24 Unknown History aerosol inhaler budesonide-formoterol HFA 80 2 inh inhalation BID 07/11/24 12/28/24 Unknown History mcg-4.5 mcg/actuation aerosol inhaler duloxetine 20 mg capsule,delayed 20 mg PO DAILY 07/11/24 12/28/24 Unknown History release fluticasone propionate 50 intranasal 07/11/24 12/28/24 Unknown History mcg/actuation nasal spray,suspension meloxicam 15 mg tablet 15 mg PO DAILY PRN 07/11/24 12/28/24 Unknown History montelukast 10 mg tablet 10 mg PO DAILY 07/11/24 12/28/24 Unknown History nortriptyline 10 mg capsule 20 mg PO DIRECTED 07/11/24 12/28/24 Unknown History pantoprazole 40 mg tablet,delayed mg PO 07/11/24 12/28/24 Unknown History release sildenafil (pulm.hypertension) 20 20 mg PO DIRECTED 07/11/24 12/28/24 Unknown History mg tablet Allergies Allergy/AdvReac Type Severity Reaction Status Date / Time shellfish derived Allergy Intermediate Rash Verified 01/05/25 15:37 amoxicillin AdvReac Mild Nausea Verified 01/05/25 15:37 Review of Systems Review of Systems: All systems reviewed & are unremarkable except as noted in HPI. All systems reviewed & are unremarkable except as noted in HPI and below PMFSH Past Medical History Medical History Hypertension Dyslipidemia Depression Surgical History Surgical History H/O hemorrhoidectomy (THD) transanal hemorrhoidal dearterialization Family History Family History Sibling , lung cancer No problems noted. Other Acute myocardial infarction Social History Social History Smoking status: Never smoker Alcohol intake: current Drinks per week: 6 Alcohol use details: PT STATES HE USED TO DRINK EVERY DAY UNTIL A YEAR AGO Substance use: never Substance use type: does not use Do You Feel Safe in your Home?: Yes Lack of Transportation: No Lack of Food: Never True Current Housing: I Have Housing Concerned About Future Housing: No Difficulty Paying Gas/Electric Bills: No Difficulty Paying for Meds: No Currently Unemployed: No Education: Trade/Vocational Certificate Difficulty w/ Childcare or Family Care: No Living arrangements: alone Spiritual care concerns: No Exam Narrative: GENERAL: Well appearing, well-nourished, non-toxic, in no acute distress. HEAD: Normocephalic, atraumatic. RESPIRATORY: Airway patent, respirations nonlabored. Clear to auscultation bilaterally, no rales, rhonchi, wheezing. CARDIOVASCULAR: Regular rate and rhythm without murmurs, rubs, or gallops. ABDOMINAL: Soft, nontender, nondistended. Normoactive BS. RECTAL: Normal rectal tone. Small nickel-sized oval external hemorrhoid present with small area of bright red bleeding present along surface. No evidence of thrombosis. MUSCULOSKELETAL: Moves all extremities. No gross deformities. SKIN: Warm, dry, normal color. NEURO: A&O X3. Speech clear. Cranial nerves II-XII grossly intact. Steady gait. No ataxic movements. PSYCHIATRIC: Appropriate mood and affect. Normal interaction. Course Vital Signs Vital signs: Vital Signs Temperature 98.3 F 01/05/25 15:33 Pulse Rate 95 01/05/25 15:33 Respiratory Rate 16 01/05/25 15:33 Blood Pressure 138/90 01/05/25 15:33 Pulse Oximetry 96 01/05/25 15:33 Oxygen Delivery Room Air 01/05/25 15:33 Temperature 98.3 F 01/05/25 15:33 Pulse Rate 95 01/05/25 19:01 Respiratory Rate 17 01/05/25 19:01 Blood Pressure 159/101 H 01/05/25 19:01 Pulse Oximetry 99 01/05/25 19:01 Oxygen Delivery Room Air 01/05/25 15:33 MDM - GI Bleed MDM Narrative Medical decision making narrative: Patient presented to ED with rectal bleeding, history of hemorrhoids. Exam and clinical picture most consistent with spontaneous rupture of external hemorrhoid today. Small area of bleeding still present on hemorrhoid surface on rectal exam, but no evidence of persistent thrombosis. Vital signs are otherwise stable. Exam otherwise unremarkable. Laboratory studies with hemoglobin of 13.1. Patient did have blood work performed yesterday in which his hemoglobin was 14.6. Will repeat to ensure no further dropping of blood levels. I did discuss case with Dr. Michel, general surgery (patient sees Dr. Mao), agrees w/ plan for repeat H&H, f/u in office with [facility] otherwise. Repeat hemoglobin 13.3. Patient has not had any further pain, bleeding, additional symptoms. Feel he is safe for discharge home at this time with strict return precautions. He is in agreement with the plan. Feels comfortable going home. Voiced understanding of return precautions. Discharged in stable condition. Medical Records Attestation: I reviewed the patient's medical records. Lab Data Attestation: I reviewed the patient's lab results. 01/05/25 18:38 01/05/25 15:52 Labs: Lab Results 01/05/25 01/05/25 Range/Units 15:52 18:38 WBC 9.7 (4.5-10.0) K/mm3 RBC 4.11 L (4.6-6.20) M/mm3 Hgb 13.1 L 13.3 L (14.0-18.0) g/dL Hct 38.9 L 39.7 L (42.0-52.0) % MCV 94.6 (80-100) fl MCH 31.9 (26-34) pg MCHC 33.7 (32-36) g/dl RDW 13.1 (11.5-14.5) % Plt Count 249 (150-375) k/mm3 MPV 10.5 H (7.4-10.4) fl Immature Gran % (Auto) 0.5 (0-0.5) % Neut % (Auto) 71.2 (45.5-73.1) % Lymph % (Auto) 16.3 L (18.3-44.2) % [place] % (Auto) 9.4 H (2.6-8.5) % Eos % (Auto) 2.1 (0-4.4) % Baso % (Auto) 0.5 (0.2-1.2) % Lymph # (Auto) 1.59 (0.9-3.2) K/mm3 [place] # (Auto) 0.9 H (0.1-0.6) K/mm3 Eos # (Auto) 0.2 (0-0.3) K/mm3 Baso # (Auto) 0.1 (0.0-0.1) K/mm3 Abs Immat Gran (auto) 0.05 H (0.00-0.031) K/mm3 Absolute Neuts (auto) 6.9 H (1.3-6.7) K/mm3 Absolute Nucleated RBC 0.000 (0.0-0.012) K/mm3 Nucleated RBC % 0.0 (0.0-0.2) % PT 14.0 (11.1-14.7) Seconds INR 1.1 APTT 26.1 (22.3-36.8) Seconds Sodium 139 (137-145) mmol/L Potassium 3.7 (3.4-5.0) mmol/L Chloride 108 H (98-107) mmol/L Carbon Dioxide 21 L (22-30) mmol/L Anion Gap 10 (4-12) mmol/L BUN 26 H (9-20) mg/dL Creatinine 1.21 (0.7-1.3) mg/dL Estim Creat Clear Calc 63 ml/min Estimated GFR 60 (59 - ) Glucose 93 (65-110) mg/dL Calcium 9.5 (8.4-10.2) mg/dL Total Bilirubin 1.0 (0.2-1.3) mg/dL AST 29 (17-59) U/L ALT 33 (6-50) U/L Alkaline Phosphatase 77 (38-126) U/L Total Protein 7.2 (6.3-8.2) g/dL Albumin 4.5 (3.5-5.1) g/dL Blood Type O Positive Antibody Screen Negative Discharge Plan Discharge Clinical Impression: Bleeding external hemorrhoids Patient Disposition: Home Condition: Stable Instructions: Antibiotic Form, Hemorrhoids (ED), Rectal Bleeding (ED) Additional Instructions: Continue steroid cream to hemorrhoids as needed. Follow-up with Dr. Mao for further evaluation if needed. Return to the ED if you experience worsening or severe bleeding, abdominal pain, unable to keep down food or drink, feeling dizzy or lightheaded, fevers, or any other symptoms of concern. Patient Language: Guinean Prescriptions: No Action montelukast 10 mg tablet 10 mg PO DAILY duloxetine 20 mg capsule,delayed release(DR/EC) 20 mg PO DAILY budesonide-formoterol 80-4.5 mcg/actuation HFA aerosol inhaler 2 inh inhalation BID albuterol sulfate 90 mcg/actuation HFA aerosol inhaler 2 inh inhalation Q4-6H PRN pantoprazole 40 mg tablet,delayed release (DR/EC) PO sildenafil (pulm.hypertension) 20 mg tablet 20 mg PO DIRECTED nortriptyline 10 mg capsule 20 mg PO DIRECTED fluticasone propionate 50 mcg/actuation spray,suspension intranasal meloxicam 15 mg tablet 15 mg PO DAILY PRN levalbuterol tartrate [Xopenex HFA] 45 mcg/actuation HFA aerosol inhaler 1 - 2 puff inhalation Q6H PRN (Reason: shortness of breath or wheezing) Qty: 15 2RF losartan 50 mg tablet 50 mg PO DAILY verapamil 120 mg capsule,ext rel. pellets 24 hr 120 mg PO DAILY atorvastatin 20 mg tablet See Rx Instructions .ROUTE .COMPLEX Qty: 30 5RF Dose Instruction: TAKE 1 TABLET BY MOUTH EVERY DAY Rx Instructions: TAKE 1 TABLET BY MOUTH EVERY DAY Follow-up/Referrals: Anthony Patrick MD [Primary Care Provider, Internal Medicine] Nadeem Mao DO [Physician, General Surgery] Referral Note: GENERAL SURGERY Time of Disposition: 18:53
[2025-01-05 18:42] LABS: Hematocrit 39.7 % (42.0-52.0); Hemoglobin 13.3 g/dL (14.0-18.0)
== END 2025-01-05 19:28 | disposition home or self-care (01) ==
PROVIDERS: Preventive Medicine Aerospace Medicine; Emergency Provider Physician Assistant; PCP Internal Medicine
DX: K64.4 Residual hemorrhoidal skin tags (principal); I10 Essential (primary) hypertension; E78.5 Hyperlipidemia, unspecified; F32.A Depression, unspecified; Z79.899 Other long term (current) drug therapy
CPT/HCPCS: 36415; 80053; 85014; 85018; 85025; 85610; 85730; 86850; 86900; 86901; 99283

== ENCOUNTER 2025-01-15 17:53 | Emergency (ER) | payer OTHER, SELFPAY ==
--- OUTSIDE RECORDS SUMMARY | 2025-01-15 17:56 | XMS_ITS | Clinical Summary ---
Author Organization [facility] Address [address] [place] [address] Care Team Providers Care Television Producer Name Role Phone Unavailable Primary Care Provider Unavailabl e Source Comments [facility],non-owned Affiliates and Associated Physician Practices is amultiple site organization consisting of ambulatory clinics and hospital sitesin [place], [place] and [place]. This disclosure is being madepursuant to the Care Everywhere program and may not contain all information available regarding this patient. Last updated 17.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
--- OUTSIDE RECORDS SUMMARY | 2025-01-15 17:56 | XMS_ITS | Clinical Summary ---
Author Organization [facility] Address [address] [place] [address] Care Team Providers Care Agricultural Adviser Name Role Phone Unavailable Primary Care Provider [...] Vaccine ( - 2023-2 5 season) 2024 Influenza Adult (#1) 2025 RSV Immunization or 60+ Years (1 - [...]
--- OUTSIDE RECORDS SUMMARY | 2025-01-15 17:56 | XMS_ITS | Clinical Summary ---
Author Organization [facility] Address [address] [place] [address] Care Team Providers Care Staff Nurse Name Role Phone Anthony Patrick MD Primary Care Provider [phone] Allergies Active Allergy Reactions Criticality Noted Date [...] file Legal Sex Male 11:50 PM [employer] Gender Identity Not on file Sexual Orientation [...] Tdap) 10/11/2026 10/11/2016, 09/24/2009, 09/24/2009 Insurance [facility] Address: [place] [address] [facility] Address: [address] [address] [place] [address] [facility]O Address: [address] [address] [place] [address] Care Teams Staff Nurse Relationship Specialty Start Date End Date Anthony Patrick MD PCP - General Internal Medicine 04/27/20
--- OUTSIDE RECORDS SUMMARY | 2025-01-15 17:56 | XMS_ITS | Data Portability ---
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 Not available 09/14/2017 16:15:36 10/17/2017 0543 Patient counsele d to F/U immediately if [...] Organization Details Recorded Time Carolyne easily reducible 595020987 Active 2017 Tx #1: 09/05/17 1.2 x 9 LL Tx #2: 8 1.2 x 10 RP Tx #3: 8 1.1 x 4 RA Tx #4: Ciara Mina MD [address] [place] [address],[address], [place], [address], [facility] [place] [facility] [place] 8 09:32:56 Thrombosed external hemorrhoids 24142033 Active 2017 Ciara Mina MD [address] [place] [address],[address], [place], [address], [facility] [place] [facility] [place] 8 13:27:48 Irritable bowel syndrome with diarrhea 618287415 Active 2017 Ciara Mina MD [address] [place] [address],[address], [place], [address], [facility] [place] [facility] [place] 8 13:28:50 Problem Notes None recorded. Procedures Surgical History Date Name Laterality Status Provider Name and Address Organization Details Recorded Time 8 IRC completed Ciara Mina MD [address] [place] [address],[address], [place], [address], [facility] [place] [facility] [place] 10/17/2017 09:36:01 8 [place] [address] [place] [address],[address], [place], [address], [facility] [place] [facility] [place] 09/18/2017 22:26:24 8 IRC completed Ciara Mina MD [address] [place] [address],[address], [place], [address] [place] [address] [facility] [place] 09/05/2017 13:26:54 8 Colonoscopy completed Ciara Mina MD [address] [place] [address],[address], [place], [address] [place] [address] [facility] [place] 09/05/2017 13:17:47 Hernia Repair completed Giana Mejía [facility] [place] 09/05/2017 09:18:46 Imaging Results None recorded. Procedure [...] Updated DateTime 8 175.26 cm 29.5 kg/m2 79327.4 7 g 96 /min 12 /min 98 [degF] 130/94 mm[Hg] Giana Mejía [facility] 8 09:33:45 Date Recorded Body height Provider Name an d Address Organization Details Last Updated DateTime 09/14/2017 175.26 cm Jeannie Cardoza [facility] 09/14/2017 15:49:55 Date Recorded Body height Provider Name an d Address Organization Details Last Updated DateTime 10/17/2017 175.26 cm Giana Mejía [facility] 10/17/2017 08:57:53 Social History Question Answer Notes LastModified by Organizat ion Details LastModified Time Tobacco Smoking Status Never Smoker Gianagarcia Mejía [facility] 09/05/2017 09:17:51 Alcohol Use Yes Information n [...] Note 2990 Ciara Mina MD Main Office [address] [facility] [place] [address] 09/05/2017 09:11:38 09/05/2017 10:49:20 Pile easily reducible 146886149 K64.1 Stage 2 internal hemorrhoid s/external hemorrhoid s: I do think he would benefit from infrared coagulatio n. Full informed consent for treatment was given including risks/bene fits and alternativ es (including watchful waiting and not doing any procedures ). He wanted to proceed with treatment. His first treatment was done today on the left lateral internal hemorrhoid . Thrombosed external hemorrhoids 23918326 K64.5 He does not require lancing or excision. He understand s that IRC will help the area resolve quicker than it would on its own but it will not make the clot go away completely . Irritable bowel syndrome with diarrhea 766463037 K58.0 He is not really concerned about the multiple BM's. I encouraged him to eat a high fiber diet 3069 Ciara Mina MD Main Office [address] [facility] [address] [place] [address] 09/14/2017 15:47:39 09/14/2017 16:18:51 Pile easily reducible 852804763 K64.1 Stage 2 - 3 internal hemorrhoid s/external hemorrhoid s: He is doing well with infrared coagulatio n treatment. His 2nd treatment was done today on the RP. Thrombosed external hemorrhoids 70978987 K64.5 This is completely resolved. Irritable bowel syndrome with diarrhea 491725276 K58.0 This is much better with treating his hemorrhoid s. 3358 Ciara Mina MD Main Office [address] [place] [address] 10/17/2017 08:56:38 10/17/2017 09:20:35 Pile easily reducible 355722212 K64.1 Stage 2 internal hemorrhoid s/external hemorrhoid s: He is doing well with infrared coagulatio n treatment. His 3rd treatment was done today on the right anterior internal hemorrhoid . Irritable bowel syndrome with diarrhea 122339571 K58.0 This is much better with treating his hemorrhoid s. External hemorrhoids 239 [address] K64.4 Improved with IRC. Health Concerns Section Related Observation LastModified by Organization Detai ls LastModified Time None Recorded Concern Status LastModified by Organization Details LastModified Time None Recorded Advance Directives Directive None Recorded Payers Insurance Date Sequence Insurance Name Policy Number Policy Wolfe Covered Member ID Wolfe Member ID Guarantor Name 09/16/2023 1 [employer] [id number] Iftikhar Arreaga [id number] Iftikhar Arreaga 09/16/2023 2 [place] Iftikhar L Whitley [id number] Iftikhar L Whitley Notes Date Note Type Note Provider Name and Address Organization Details Recorded Time 09/05/2017 text/html ROS as noted in the HPI 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 Ciara Mina MD [address] [place] [address],[address], [place], [address], [facility] [place] [facility] 09/05/2017 13:33:05 09/14/2017 text/html No problem [...] not eating any differently. Ciara Mina MD [address] [place] [address],[address], [place], [address], [facility] 09/18/2017 22:30:14 10/17/2017 text/html [...] soft and daily. Ciara Mina MD [address] [facility],[address], [place], [address], [facility] [place] [facility] [place] 10/17/2017 09:37:02
--- NOTE | 2025-01-15 18:04 | ED.GENADULT ---
HPI - General Adult General Chief complaint: Extremity Injury, Upper Stated complaint: RT Thumb Injury Time Seen by Provider: 01/15/25 18:05 Source: patient, RN notes reviewed and old records reviewed Mode of arrival: ambulatory Limitations: no limitations History of Present Illness HPI narrative: 65-year-old male presents to the [facility] with right thumb injury. Related Data Home Medications ?Medication ?Instructions ?Recorded ?Confirmed ?Last Taken ?Type losartan 50 mg tablet 50 mg PO DAILY 02/14/23 12/28/24 2 Days Ago History ~06/14/23 verapamil 120 mg 24 hr 120 mg PO DAILY 02/14/23 12/28/24 2 Days Ago History capsule,extended release ~06/14/23 albuterol sulfate 90 mcg/actuation 2 inh inhalation Q4-6H PRN 07/11/24 12/28/24 Unknown History aerosol inhaler budesonide-formoterol HFA 80 2 inh inhalation BID 07/11/24 12/28/24 Unknown History mcg-4.5 mcg/actuation aerosol inhaler duloxetine 20 mg capsule,delayed 20 mg PO DAILY 07/11/24 12/28/24 Unknown History release fluticasone propionate 50 intranasal 07/11/24 12/28/24 Unknown History mcg/actuation nasal spray,suspension meloxicam 15 mg tablet 15 mg PO DAILY PRN 07/11/24 12/28/24 Unknown History montelukast 10 mg tablet 10 mg PO DAILY 07/11/24 12/28/24 Unknown History nortriptyline 10 mg capsule 20 mg PO DIRECTED 07/11/24 12/28/24 Unknown History pantoprazole 40 mg tablet,delayed mg PO 07/11/24 12/28/24 Unknown History release sildenafil (pulm.hypertension) 20 20 mg PO DIRECTED 07/11/24 12/28/24 Unknown History mg tablet Allergies Allergy/AdvReac Type Severity Reaction Status Date / Time shellfish derived Allergy Mild Rash Verified 01/15/25 17:59 amoxicillin AdvReac Mild Nausea Verified 01/15/25 17:59 Review of Systems Review of Systems: All systems reviewed & are unremarkable except as noted in HPI and below Constitutional: Constitutional: Reports no additional constitutional complaints ENT: Reports system reviewed and no additional complaints, except as documented Cardiovascular: Cardiovascular: Reports no additional cardiovascular complaints, Denies chest pain and Denies dyspnea Respiratory: Respiratory: Reports no additional respiratory complaints, Denies chest congestion, Denies cough and Denies dyspnea Musculoskeletal: Musculoskeletal: Reports no additional musculoskeletal complaints Integumentary/Breasts: Skin/Breast: Reports system reviewed and no additional complaints, except as docu [facility] Past Medical History Medical History Hypertension Dyslipidemia Depression Surgical History Surgical History H/O hemorrhoidectomy (THD) transanal hemorrhoidal dearterialization Family History Family History Sibling , lung cancer No problems noted. Other Acute myocardial infarction Social History Social History Smoking status: Never smoker Alcohol intake: current Drinks per week: 6 Alcohol use details: PT STATES HE USED TO DRINK EVERY DAY UNTIL A YEAR AGO Substance use: never Substance use type: does not use Do You Feel Safe in your Home?: Yes Lack of Transportation: No Lack of Food: Never True Current Housing: I Have Housing Concerned About Future Housing: No Difficulty Paying Gas/Electric Bills: No Difficulty Paying for Meds: No Currently Unemployed: No Education: Trade/Vocational Certificate Difficulty w/ Childcare or Family Care: No Living arrangements: alone Spiritual care concerns: No Comments At the time of my signature, I reviewed and agree with the nursing past medical, surgical, social, and family history. There is no relevant family history pertinent to the patient complaint. Exam Const: General: cooperative, healthy appearing, comfortable, no acute distress, well developed, alert and well nourished Nutritional Appearance: well nourished Orientation/consciousness: patient oriented x3 Limitations: no limitations HENMT: Head: normal to inspection Eyes: General: appearance normal, both eyes and all related structures Alignment and Position: alignment normal Neck: Neck: normal visual inspection, full ROM, no lymphadenopathy and no meningeal signs Chest: Chest palpation & inspection: normal inspection of the chest Resp: Effort & Inspection: normal respiratory effort and able to speak in complete sentences Auscultation: clear to auscultation bilaterally, no crackles, no rales, no rhonchi and no wheezes Cardio: Rate: regular rate Skin: General skin exam: normal color and no rashes or lesions noted Neuro: General: patient oriented x3, gait normal, moves all extremities and no meningeal signs Cognition (Neuro): normal cognition Speech: normal speech Gait exam (Neuro): Normal gait present Extrem: General: normal to inspection, full ROM, capillary refill normal and normal gait Psych: Appearance: grossly normal and well kempt Mental Status: mental status grossly normal Speech and movement: Normal speech and movement present and Clear speech present Affect: normal affect Attitude: cooperative Course Course Level of Care: Express Care Visit Vital Signs Vital signs: Reviewed Medical Decision Making MDM Narrative Medical decision making narrative: Patient sitting comfortably in exam room. Nontoxic, vitals stable. Patient in no acute distress Patient presents for Discharge instructions reviewed with patient, as well as provided in writing per nursing staff. The instructions also include specific and strict return/GO TO THE ER as well as f/u information. All questions have been answered, and the patient deny any further questions with discharge and discharge plan. Some parts of this dictation were generated by voice recognition software and may contain typographical and/or grammatical inaccuracies. Medical Records Medical records reviewed: Yes I reviewed the external patient's medical records. Vital Signs Vital Signs: Reviewed Lab Data Lab results reviewed: Yes I reviewed the patient's lab results. Labs: Reviewed Critical Care Time Critical Care Time Critical Care Time: No Discharge Plan Discharge Patient Language: Ukrainian Prescriptions: No Action montelukast 10 mg tablet 10 mg PO DAILY duloxetine 20 mg capsule,delayed release(DR/EC) 20 mg PO DAILY budesonide-formoterol 80-4.5 mcg/actuation HFA aerosol inhaler 2 inh inhalation BID albuterol sulfate 90 mcg/actuation HFA aerosol inhaler 2 inh inhalation Q4-6H PRN pantoprazole 40 mg tablet,delayed release (DR/EC) PO sildenafil (pulm.hypertension) 20 mg tablet 20 mg PO DIRECTED nortriptyline 10 mg capsule 20 mg PO DIRECTED fluticasone propionate 50 mcg/actuation spray,suspension intranasal meloxicam 15 mg tablet 15 mg PO DAILY PRN levalbuterol tartrate [Xopenex HFA] 45 mcg/actuation HFA aerosol inhaler 1 - 2 puff inhalation Q6H PRN (Reason: shortness of breath or wheezing) Qty: 15 2RF losartan 50 mg tablet 50 mg PO DAILY verapamil 120 mg capsule,ext rel. pellets 24 hr 120 mg PO DAILY atorvastatin 20 mg tablet See Rx Instructions .ROUTE .COMPLEX Qty: 30 5RF Dose Instruction: TAKE 1 TABLET BY MOUTH EVERY DAY Rx Instructions: TAKE 1 TABLET BY MOUTH EVERY DAY Follow-up/Referrals: Anthony Patrick MD [Primary Care Provider, Internal Medicine]
[2025-01-15 18:09] VITALS: BP 141/99; PULSE 92; RESP 18; TEMP 36.5; O2SAT 98
== END 2025-01-15 18:18 | disposition left against medical advice (07) ==
PROVIDERS: Emergency Provider Nurse Practitioner; PCP Internal Medicine
DX: Z53.21 Procedure and treatment not carried out due to patient leaving prior to being seen by health care provider (principal)
CPT/HCPCS: 99199